=== PATIENT | female | born 1995 | race Caucasian/White ===

== ENCOUNTER 2023-10-15 07:41 | Inpatient (IN) ==
[2023-10-15] MEDS ORDERED: CALCIUM CARBONATE 500 MG CHEWABLE TAB PO PRN (08:44)
--- NOTE | 2023-10-15 09:03 | History & Physical Report ---
Date of Service October 15, 2023 Assessment & Plan (1) Post-term , 40-42 weeks of gestation: Plan: 37-year-old -0-0-1 at 40 weeks and 3 days of gestation presenting today for scheduled induction of labor for postdates, Vital signs stable afebrile, heart rate reassuring, GBS negative, Cervix unfavorable, Plan to admit, monitor, labs, breakfast before we start cervical ripening with Cervidil, discussed what to expect during induction of labor and understands all, All questions were answered. (2) Obesity affecting in third trimester, antepartum: Admission and Anticipated Discharge Date Admission Date: October 15, 2023 History of Present Illness Primary Care Provider: Alyssa Soares Patient is a 27-year-old -0-0-1 at 40 weeks and 3 days of gestation who was scheduled for induction of labor for postdates. Patient has no complaints. She denies contractions, leakage of fluid, vaginal bleeding. She reports good movements. Her has been uncomplicated except obesity. She denies medical problems. GBS negative. she had ultrasound in the office yesterday for EFW and it was 8 pounds 6 ounces. Her first baby was 8 years ago and she weighed 7 pounds. Allergies Allergy/AdvReac Type Severity Reaction Status Date / Time amoxicillin Allergy HIVES Unverified 11/18/19 22:02 clavulanic acid Allergy HIVES Unverified 11/18/19 22:02 Home Medications Medication Instructions Recorded Confirmed Type acetaminophen 500 mg tablet 1,000 mg PO Q6H PRN Pain 11/18/19 11/18/19 History (Tylenol Extra Strength) oxycodone 5 mg tablet (Roxicodone) 5 mg PO Q6H PRN pain #12 tabs 04/09/20 Rx Patient History Medical History No pertinent past medical history Surgical History No pertinent past surgical history Social History Smoking Status: Former smoker Tobacco Type: E-cigarettes / Vaping Second Hand Exposure: No; Do You Dip or Chew Tobacco: No; Hx Alcohol Use: No Hx Substance Use: No Preferred Language: Uzbek Communication Ability: Effective Marking Room Supervisor Required: No Beliefs That Will Affect Care: None marital status: Current Living Situation: Family Current Living Situation Comment: Pt lives with FOB, his grandparents, her 8 yo daughter, and 2 dogs. Other Information That Helps Us Care for You: No Feels Safe at Home: Yes Safety Concerns: Feels Safe At This Time Assistive Devices: None OB History full-term 8 years ago, viable female infant, 7 pounds WEBSITE DESIGNER History patient denies any history of STDs, no history of genital herpes, chlamydia, gonorrhea. Review of Systems as per Subjective / HPI Physical Exam Constitutional: WD/WN, vitals as above Genitourinary: normal external appearance OB Exam Abdomen: + vertex Manual OB Exam: + cervical dilation 1 cm, + cervical effacement 20% and + station high OB Exam Monitor Tracing: + external uterine monitor used and + category I Results & Data Vital Signs (Past 12 Hours) Vital Signs Temp Pulse Resp BP 10/15/23 08:20 36.8 C 110 H 16 140/75 10/15/23 07:51 110 H 140/75 (2) Obesity affecting in third trimester, antepartum Obesity type affecting : unspecified obesity Qualified Code(s): O99.213 - Obesity complicating , third trimester
[2023-10-15 09:33] LABS: Hemoglobin 12.3 g/dl (12.0-16.0); Mean Corpuscular Hemoglobin 29.6 pg (25.0-34.0); Mean Corpuscular Hgb Conc 33.2 g/dL (32.0-36.0); Mean Corpuscular Volume 88.9 fL (80.0-100.0); Platelet Count 174 K/uL (130-400); RDW Coefficient of Variation 13.7 % (11.5-14.5); RDW Standard Deviation 44.1 fL (36.4-46.3); Red Blood Count 4.16 M/uL (4.20-5.40); White Blood Count 11.88 K/ul (4.8-10.8)
[2023-10-15 09:43] LABS: Albumin Globulin Ratio 1.1 (0.9-2); Albumin Level 3.4 gm/dl (3.4-5.0); Bilirubin,Total 0.4 mg/dl (0.2-1.0); Calcium 8.9 mg/dl (8.6-10.3); Creatinine Clr Calc Pharmacy 176.7 ml/min; Est GFR (African American) 144.4 ml/min; Est GFR (Non-African American) 124.6 ml/min; Potassium 3.8 mmol/L (3.5-5.1); Total Protein 6.4 gm/dl (6.0-8.3)
[2023-10-15] MEDS: DINOPROSTONE 10 MG INSERT PV ONE (10:11)
[2023-10-15 10:22] LABS: HepB Surface Ag with confirm Negative (Negative)
[2023-10-15 10:28] LABS: HepC Ab Rflx HepCQuant RNA Negative (Negative)
[2023-10-15] MEDS: BUTORPHANOL TARTRATE 2 MG/ML VIAL IV ONE (14:53)
--- NOTE | 2023-10-15 14:58 | Obstetrical Progress Note ---
Date of Service October 15, 2023 Assessment & Plan Admission and Anticipated Discharge Date Admission Date: October 15, 2023 Subjective Patent c/o pain VE; 2/ 30%/-2 FHR categ I CTXS Q 2-4 min Continue to monitor Stadol for pain Results & Data Vital Signs (Past 12 Hours) Vital Signs Temp Pulse Resp BP 10/15/23 14:41 94 H 137/81 10/15/23 13:40 97 H 138/81 10/15/23 10:12 100 H 121/75 10/15/23 08:20 36.8 C 110 H 16 140/75 10/15/23 07:51 110 H 140/75
[2023-10-15] MEDS: LACTATED RINGER'S 1,000 ML IV PRN (15:00)
--- NOTE | 2023-10-15 16:42 | Obstetrical Progress Note ---
Date of Service October 15, 2023 Assessment & Plan Admission and Anticipated Discharge Date Admission Date: October 15, 2023 Subjective Patient is reevaluated She slept for a while and woke up, contractions are coming back Pain is less, 5/ 10 ( was 8-9), every 1-2 min FHR had been categ I Frannie: contractions q 1-2 min VE; 2/ 30%/-3, posterior, cervidil is removed Patient desires to walk and eat dinner Continue to monitor Will restart cervical ripening when contractions will space out Results & Data Vital Signs (Past 12 Hours) Vital Signs Temp Pulse Resp BP 10/15/23 15:55 96 H 128/80 10/15/23 15:05 16 10/15/23 15:05 36.8 C 16 10/15/23 15:01 93 H 126/78 10/15/23 14:56 88 136/82 10/15/23 14:41 94 H 137/81 10/15/23 13:40 97 H 138/81 10/15/23 12:05 18 10/15/23 12:05 36.8 C 18 10/15/23 10:12 100 H 121/75 10/15/23 08:20 36.8 C 110 H 16 140/75 10/15/23 07:51 110 H 140/75
[2023-10-15] MEDS ORDERED: miSOPROStoL 50 MCG TAB PO SCH (20:00)
[2023-10-15] MEDS: ACETAMINOPHEN 500 MG TAB PO PRN (20:00)
[2023-10-15] MEDS: BUTORPHANOL TARTRATE 2 MG/ML VIAL IV PRN (20:22)
--- NOTE | 2023-10-15 22:24 | Obstetrical Progress Note ---
Date of Service October 15, 2023 Assessment & Plan Admission and Anticipated Discharge Date Admission Date: October 15, 2023 Subjective Patient is getting more painful again and desires epidural for pain Since cervidil has been removed she has has been having regular contractions, was unable to get PO Cytotec VSS Afebrile FHR categ I [place] ctxs q 2-5 min VE; 2-3cm/ 70%/ -3, tight bulging bag Plan to call anesthesia for epidural Then augment with Oxytocin of needed Continue to monitor closely Results & Data Vital Signs (Past 12 Hours) Vital Signs Temp Pulse Resp BP 10/15/23 19:15 36.5 C 10/15/23 19:13 98 H 123/77 10/15/23 17:41 96 H 134/64 10/15/23 17:37 16 10/15/23 17:37 36.7 C 16 10/15/23 15:55 96 H 128/80 10/15/23 15:05 16 10/15/23 15:05 36.8 C 16 10/15/23 15:01 93 H 126/78 10/15/23 14:56 88 136/82 10/15/23 14:41 94 H 137/81 10/15/23 13:40 97 H 138/81 10/15/23 12:05 18 10/15/23 12:05 36.8 C 18
[2023-10-15] MEDS ORDERED: NALOXONE HCL 0.4 MG/1 ML VIAL/CARP IV PRN (22:50)
[2023-10-15] MEDS ORDERED: LIDOCAINE 2% MPF LOCAL 5 ML VIAL EPI PRN (22:50)
[2023-10-15] MEDS ORDERED: diphenhydrAMINE 50 MG/ML VIAL IV PRN (22:50)
[2023-10-15] MEDS ORDERED: ePHEDrine sulfate 50 MG/ML AMP IV PRN (22:50)
[2023-10-15] MEDS ORDERED: NALOXONE HCL 1 MG in SODIUM CHLORIDE 0.9% 1,000 ML IV PRN (22:50)
[2023-10-15] MEDS ORDERED: ROPIVACAINE 0.5% PF 5 MG/ML 20 ML VIAL EPI PRN (22:50)
[2023-10-15] MEDS ORDERED: NALBUPHINE HCL 5 MG in SYRINGE 0 ML IV PRN (22:50)
--- NOTE | 2023-10-15 22:50 | Anesthesiology Consultation ---
Date of Service October 15, 2023 Assessment & Plan (1) Encounter for pre-operative examination: Chart Review Chart Review: Patient NOT seen in Pre Admission Testing and Acceptable Risk for Labor Epidural Consults Requested none History Height/Weight Height: 5 ft 6 in Weight: 106.594 kg Allergies Allergy/AdvReac Type Severity Reaction Status Date / Time latex Allergy Mild Redness of Unverified 10/15/23 10:22 Skin amoxicillin Allergy HIVES Unverified 11/18/19 22:02 clavulanic acid Allergy HIVES Unverified 11/18/19 22:02 Medications Home Medications Medication Instructions Recorded Confirmed Last Taken vitamin no.45-iron-FA 28 tab PO 10/15/23 10/14/23 08:00 mg iron-1 mg chewable tablet Active Medications Generic Name Dose Route Start Last Admin Trade Name Freq PRN Reason Stop Dose Admin Acetaminophen 1,000 mg 10/15/23 08:44 10/15/23 20:00 Acetaminophen 500 Mg Tab PO 11/14/23 08:43 1,000 mg Q8H PRN Administration Pain Butorphanol Tartrate 1 mg 10/15/23 16:42 10/15/23 20:22 Butorphanol Tartrate 2 Mg/Ml Vial IV 11/14/23 16:44 1 mg Q3H PRN Administration pain Protocol Lactated Ringer's 1,000 mls @ 150 mls/hr 10/15/23 08:44 10/15/23 22:17 Lr IV 10/17/23 08:43 999 mls/hr .[id number] PRN Administration L&D Protocol Protocol Past Medical History Medical History No pertinent past medical history Past Surgical History Surgical History No pertinent past surgical history Social History Smoking Status: Former smoker Do You Dip or Chew Tobacco: No Hx Alcohol Use: No Hx Substance Use: No substance use type: does not use Physical Exam Vital Signs Last Vital Signs Temp 97.7 F 10/15/23 19:15 Pulse 95 H 10/15/23 22:47 Resp 16 10/15/23 17:37 BP 123/73 10/15/23 22:43 Pulse Ox 99 10/15/23 22:47 Testing Laboratory Results 10/15/23 09:08 06/13/24 09:08 Blood Type A Positive 10/15/23 09:08 Antibody Screen NEGATIVE 10/15/23 09:08
[2023-10-15] MEDS: fentaNYL citrate PF 100 MCG/2 ML VIAL ONE (23:14)
[2023-10-15] MEDS: LIDOCAINE 2%/EPINEPHRINE 1:200,000 20 ML PF EPI STA (23:14)
[2023-10-15] MEDS: fentANYL 2 MCG/ML BUPIVacaine 0.125%-NSS 100ML BAG ONE (23:14)
[2023-10-15] MEDS: BUPIVACAINE 0.25% PF 30 ML VIAL EPI STA (23:14)
[2023-10-15] MEDS: ePHEDrine sulfate 50 MG/ML AMP ONE (23:14)
[2023-10-15] MEDS: BUPIVACAINE 0.25% PF 30 ML VIAL ONE (23:15)
[2023-10-15] MEDS: LIDOCAINE 2%/EPINEPHRINE 1:200,000 20 ML PF ONE (23:15)
[2023-10-15] MEDS: SODIUM CHLORIDE 0.9% PF INJ 10 ML VIAL EPI STA (23:15)
[2023-10-15] MEDS: fentaNYL citrate PF 100 MCG/2 ML VIAL EPI STA (23:17)
[2023-10-15] MEDS: fentANYL 2 MCG/ML BUPIVacaine 0.125%-NSS 100ML BAG EPI PRN (23:17)
[2023-10-16] MEDS: OXYTOCIN 30 UNITS/NSS 30 UNITS/500 ML BAG IV PRN ×2 (00:48→06:27)
[2023-10-16] MEDS: fentaNYL citrate PF 100 MCG/2 ML VIAL EPI PRN (02:06)
[2023-10-16] MEDS: SODIUM CHLORIDE 0.9% PF INJ 10 ML VIAL EPI PRN (02:07)
[2023-10-16] MEDS: BUPIVACAINE 0.25% PF 30 ML VIAL EPI PRN (02:07)
--- OUTSIDE RECORDS SUMMARY | 2023-10-16 02:07 | External Medical Summary | Summary of Care ---
Author Name Unknown Organization [facility] [address] [address] Phone [phone] Care Team Providers Care Human Service Specialist Name Role Phone Wanda Rodriguez MD Primary Care Provide r Reason for Visit * Reason Comments Return Visit Encounter Details Date Type Department Care Team (Late st Contact Info) Description 09/29/2023 11:30 AM EDT Office Visit Gynecology/Obstetric s Wendy Jones [address] [place] [address] Mandie Barahona CRNP [address] [place] [phone] Normal in third trimester*; Obesity in , antepartum; Tobacco smoking affecting in third trimester Allergies Active Allergy Reactions Criticality Noted Date Comments Amoxicillin-Pot Clavulanate 07/14/19 08 hives documented as of this encounter (statuses as of 09/29/2023) Medications Medication Sig Dispensed Refills Start Date End Date Status 28-0.8 MG Oral Tablet Take by mouth. Active documented as of this encounter (statuses as of 09/29/2023) Active Problems Problem Noted Date Diagnosed Date Normal 03/10/2023 Obesity in , antepartum 03/10/2023 Overview: Class 1 The patient's pre-gravid BMI is 30.54. Elevated early 1 hr GTT; 3 hr testing normal. Will need 3 hr at 26-28 weeks. 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 10/01/2022 VACCIN FOR DISEASE NEC 01/30/2005 Estimated Date of Delivery Comme nts Yes 10/12/2023 Based on last me nstrual period of 01/05/2023, irregular periods documented as of this encounter (statuses as of 09/29/2023) Resolved Problems Problem Noted Date Diagnosed Date Resolved Date Glucose intolerance of 04/07/2023 04/17/2023 Overview: Elevated 1 hr GTT at 13 wks Food insecurity 10/13/2022 08/13/2023 Overview: Per [facility] Protocol documented as of this encounter (statuses as of 09/29/2023) Immunizations Name Administration Dates Next Due DTP Vaccine 10/09/1994,08/06/1994,03/25/1994 DTaP Dipth/Tet/Acell Pertussis (Infanrix), Peds 12/13/1998,08/18/1995 HIB PRP-T, 4 dose (ActHib) 05/08/1995,,08/06/1994, 994 HPV Vaccine, 4-Valent 06/20/2009,02/14/2009,06/2007 Hepatitis B, 0-19 yrs 08/06/1994,03/25/1994,12/03 IPV - Polio Virus Vaccine (Inact) 01/29/2000 MMR - Measles/Mumps/Rubella Vaccine 12/13/1998,0 05/08/1995 OPV - Polio Virus Vaccine (Oral) 05/08/1995,040 09/1994,03/25/1994 TB Dennise Test 12/22/1994 TDAP (age 10 and older)(Boostrix) 07/20/2023 Varicella Vaccine (Chicken Pox) 05/08/1995 documented as of this encounter Social History Tobacco Use Types Packs/Day Years Used Date Smoking Tobacco: Every Day Vaporizer Smokeless Tobacco: Never Alcohol Use Standard Drinks/Week Comments Not Currently 0 (1 standard drink = 0.6 oz pur e alcohol) occ PHQ-2 Answer Date Recorded PHQ Adult Total Score 0 07/20/2023 Hunger Vital Sign Answer Date Recorded Within the past 12 months, y ou worried that your food would run out before you got the money to buy more. Never true 07/17/19 24 Within the past 12 months, t he food you bought just didn't last and you didn't have money to get more. Never true 07/17/2023 [place] Depression Scale Answer Date Recorded [place] Depression Scale Total 0 08/31/2023 The thought of harming myself has occurred to me . Never 08/31/2023 Estimated Date of Delivery Comme nts Yes 10/12/2023 Based on last me nstrual period of 01/05/2023, irregular periods Sex and Gender Information Value Date Recorded Sex Assigned at Female 10/01/2022 10:43 AM EDT Gender Identity Female 10/01/2022 10:43 AM EDT Sexual Orientation Straight 10/01/2022 10 :43 AM EDT Job Start Date Occupation Industry Not on file Not on file Not on file documented as of this encounter Last Filed Vital Signs Vital Sign Reading Time Taken Comments Blood Pressure 116/70 09/29/2023 11:22 AM EDT Pulse - - Temperature - - Respiratory Rate - - Oxygen Saturation - - Inhaled Oxygen Concentration - - Weight 107.5 kg (237 lb) 09/29/2023 11:22 AM EDT Height - - Body Mass Index 38.25 09/21/2023 11:19 AM EDT documented in this encounter Progress Notes * Mandie Barahona CRNP - 09/29/2023 11:28 AM EDT 38w1d More consistent cramping today, desires cervical exam. Feels she is well hydrated. Cramping is worse when she is sitting down. Baby is moving well. No leaking/bleeding. Cervix 1 cm, thick/high. Reviewed labor precautions and when to call. Can try Tylenol, warm bath, push fluids, walk. 1 week return. Foreclosure Paralegal Documentation Provider requested insurance claim auditor. Name of insurance claim auditor: MICHAEL Wilson * Arely Jose LPN - 09/29/2023 11:23 AM EDT 38w1d Denies vaginal bleeding/rom + movement Has been having a lot of cramping- has been on and off but more consistent today Drinking lots of water Feels cramping is worse after sitting for long periods of time. Cervical check today documented in this encounter Plan of Treatment Health Maintenance Due Date Last Done Comments Pneumococcal Vaccine: Pediatrics (0 to 5 Years) and At-Risk Patients (6 to 64 Years) (1 of 2 - PCV) 12/27/1999 COVID-19 Vaccine (1 - 2022-24 season) 2023 Influenza Vaccine (FLU shot) (Season Ended) 2024 Pap Smear 10/08/2025 10/08/2022 DTaP,Tdap,and Td Vaccines (8 - Td or Tdap) 07/19/2033 07/20/2023, 01/30/2005, 12/13/1998, Additional history exists Hepatitis B Completed 08/06/1994, 03/05, 1993 MENINGOCOCCAL (MENACTRA/MENVEO) Aged Out 01/30/2005 No longer eligible based on patient's age to complete this topic GARDASIL-HPV IMMUNIZATION SERIES Completed 06/20/2009, 02/14/2009, 09/03/2007 documented as of this encounter Medical Devices Not on filedocumented as of this encounter Visit Diagnoses Diagnosis Normal in third trimester- Primary Obesity in , antepartum Obesity complicating , childbirth, or the puerperium, antepartum condition or complication Tobacco smoking affecting in third trimester documented in this encounter Care Teams Human Service Specialist Relationship Specialty Start Date End Date Wanda Rodriguez MD [address] [place] [address] [place] [phone] PCP - General Family Medicine 10/21/22 documented as of this encounter
--- OUTSIDE RECORDS SUMMARY | 2023-10-16 02:07 | External Medical Summary | Summary of Care ---
Author Name Unknown Organization [facility] Address [address] [facility] [place] [address] Phone [phone] Care Team Providers Care Human Performance Consultant Name Role Phone Wanda Rodriguez MD Primary Care Provide r Encounter Details Date Type Department Care Team (Late st Contact Info) Description 10/08/2023 Tele[facility] [address] [place] [address] Robert Bryan MD [address] [place] [phone] Allergies Active Allergy Reactions Criticality Noted Date Comments Amoxicillin-Pot Clavulanate 07/14/19 08 hives documented as of this encounter (statuses as of 10/12/2023) Medications Medication Sig Dispensed Refills Start Date End Date Status 28-0.8 MG Oral Tablet Take by mouth. Active documented as of this encounter (statuses as of 10/12/2023) Active Problems Problem Noted Date Diagnosed Date Normal 03/10/2023 Obesity in , antepartum 03/10/2023 Overview: Class 1 The patient's pre-gravid BMI is 30.54. Elevated early 1 hr GTT; 3 hr testing normal. Will need 3 hr at 26-28 weeks. 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 10/01/2022 VACCIN FOR DISEASE NEC 01/30/2005 Estimated Date of Delivery Comme nts Yes 10/12/2023 Based on last me nstrual period of 01/05/2023, irregular periods documented as of this encounter (statuses as of 10/12/2023) Resolved Problems Problem Noted Date Diagnosed Date Resolved Date Glucose intolerance of 04/07/2023 04/17/2023 Overview: Elevated 1 hr GTT at 13 wks Food insecurity 10/13/2022 08/13/2023 Overview: Per [facility] Protocol documented as of this encounter (statuses as of 10/12/2023) Immunizations Name Administration Dates Next Due DTP Vaccine 10/09/1994,08/06/1994,03/25/1994 DTaP Dipth/Tet/Acell Pertussis (Infanrix), Peds 12/13/1998,08/18/1995 HIB PRP-T, 4 dose (ActHib) 05/08/1995,,08/06/1994, 994 HPV Vaccine, 4-Valent 06/20/2009,02/14/2009,050 06/2007 Hepatitis B, 0-19 yrs 08/06/1994,03/25/1994,12/03 IPV - Polio Virus Vaccine (Inact) 01/29/2000 MMR - Measles/Mumps/Rubella Vaccine 12/13/1998,0 05/08/1995 OPV - Polio Virus Vaccine (Oral) 05/08/1995,0 09/1994,03/25/1994 TB Dennise Test 12/22/1994 TDAP (age [...] money to get more. Never true 07/17/2023 [place] Depression Scale Answer Date Recorded [place] Depression Scale Total 0 08/31/2023 The thought [...] on file documented as of this encounter Miscellaneous Notes * Telephone Encounter - Ashleigh Garcia LPN - 10/08/2023 11:45 AM EDT Patient called asking for work note for missed work due to discomfort. Reviewed with Dr. Bryan car conditioner, ok to provide note. documented in this encounter Plan of Treatment Upcoming Encounters Date Type Department Care Team (Late st Contact Info) Description 10/13/2023 11:15 AM EDT Office Visit Gynecology/Obstetrics [facility] [address] [place] [address] Norma Osei CRNP [address] [place] [phone] 10/19/2023 11:30 AM EDT Office Visit Gynecology/Obstetrics [address] [place] [address] Norma Osei CRNP [address] [place] [phone] Health Maintenance Due Date Last Done Comments Pneumococcal Vaccine: Pediatrics (0 to 5 Years) and At-Risk Patients (6 to 64 Years) (1 of 2 - PCV) 12/27/1999 COVID-19 Vaccine (1 - 2022- season) 2023 Influenza Vaccine (FLU shot) (Season Ended) 2024 Depression Monitoring 07/19/2024 07/20/2023 Pap Smear 10/08/2025 10/08/2022 DTaP,Tdap,and Td Vaccines [...] Diagnoses Diagnosis Normal in third trimester- Primary documented in this encounter Care Teams Human Performance Consultant Relationship Specialty Start Date End Date Wanda Rodriguez MD [address] [place] [address] [place] [phone] PCP - General Family Medicine 10/21/22 documented as of this encounter
--- OUTSIDE RECORDS SUMMARY | 2023-10-16 02:07 | External Medical Summary | Summary of Care ---
Author Name Unknown Organization [facility] Address [address] [facility] [place] [address] Phone [phone] Care Team Providers Care Body And Fender Mechanic Apprentice Name Role Phone Wanda Rodriguez MD Primary Care Provide r Reason for Visit * Reason Comments Return Visit Encounter Details Date Type Department Care Team (Late st Contact Info) Description 09/21/2023 11:30 AM EDT Office Visit Gynecology/Obstetric s Wendy Jones [address] [place] [address] Gisel Willett PA-C [address] [place] [address] Normal in third trimester*; Obesity in , antepartum; Tobacco smoking affecting in third trimester Allergies Active Allergy Reactions Criticality Noted Date Comments Amoxicillin-Pot Clavulanate 07/14/19 08 hives documented as of this encounter (statuses as of 09/21/2023) Medications Medication Sig Dispensed Refills Start Date End Date Status 28-0.8 MG Oral Tablet Take by mouth. Active documented as of this encounter (statuses as of 09/21/2023) Active Problems Problem Noted Date Diagnosed Date Normal 03/10/2023 Obesity in , antepartum 03/10/2023 Overview: Class 1 The patient's pre-gravid BMI is 30.54. Elevated early 1 hr GTT; 3 hr testing normal. Will need 3 hr at 26-28 weeks. 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 Never true 07/17/2023 [place] Depression Scale Answer Date Recorded [place] Depression Scale Total 0 08/31/2023 The thought [...] Sign Reading Time Taken Comments Blood Pressure 108/74 09/21/2023 11:19 AM EDT Pulse - - Temperature - - Respiratory Rate - - Oxygen Saturation - - Inhaled Oxygen Concentration - - Weight 105.2 kg (232 lb) 09/21/2023 11:19 AM EDT Height 167.6 cm (5' 6") 09/21/2023 11:19 AM EDT Body Mass Index 37.45 09/21/2023 11:19 AM EDT documented in this encounter Progress Notes * Gisel Willett PA-C - 09/21/2023 11:49 AM EDT 37w0d Denies contractions, VB, LOF. Pos fm. Growth following last visit d/t S>D. Completed 09/18/2023. EFW: 3176 g +/- 464 g which is the 73rd percentile. Normal JAYE. Cephalic. Reviewed with her today. Reviewed delivery records. Records scanned to chart. No mention of stroke. Discussed with patient. Normal spontaneous delivery reported in summary. Not complicated by preeclampsia. She did have second degree perineal laceration, right vaginal wall laceration, right and left superficial labial laceration. EBL 250 ml. Patient states never had imaging of head or placed on blood thinners. Was discharged next day. Pt states that nurse had mentioned to her that she looked like she was going to have stroke when patientwas in pain related to epidural not working. Also reports delivery provider did have to open cervix manually. We discussed that this was also not mentioned in delivery reports. Rather patient fully dilated. We discussed making delivery team aware of last delivery. At this time, low suspicion for stroke with last delivery given the above. RTC in 1 week Gisel Willett PA-C documented in this encounter Plan of Treatment Upcoming Encounters Date Type Department Care Team (Late st Contact Info) Description 09/29/2023 11:30 AM EDT [facility] [address] [place] [phone] BackerMandie CRNP [address] [place] [address] Health Maintenance Due Date Last Done Comments [...] trimester documented in this encounter Care Teams Body And Fender Mechanic Apprentice Relationship Specialty Start Date End Date Wanda Rodriguez MD [address] [place] [address] [place] [phone] PCP - General Family Medicine 10/21/22 documented as of this encounter
--- OUTSIDE RECORDS SUMMARY | 2023-10-16 02:07 | External Medical Summary | Summary of Care ---
Author Name Unknown Organization [facility] Address [address] [facility] [place] [address] Phone [phone] Care Team Providers Care Histologist Name Role Phone Wanda Rodriguez MD Primary Care Provide r Reason for Visit * Reason Onset Date Comments Advice 10/07/2023 Pt calling back after an hour approx 1230pm Encounter Details Date Type Department Care Team (Late st Contact Info) Description 10/07/2023 Telephone Gynecology/Obstetrics [facility] [place] [address] [place] [address] Melita Morales MD [address] [place] [address] Advice (Pt calling back after an hour appr... Allergies Active Allergy Reactions Criticality Noted Date Comments Amoxicillin-Pot Clavulanate 07/14/19 08 hives documented as of this encounter (statuses as of 10/07/2023) Medications Medication Sig Dispensed Refills Start Date End Date Status 28-0.8 MG Oral Tablet Take by mouth. Active documented as of this encounter (statuses as of 10/07/2023) Active Problems Problem Noted Date Diagnosed Date [...] as of this encounter (statuses as of 10/07/2023) Resolved Problems Problem Noted Date Diagnosed Date Resolved Date Glucose intolerance of 04/07/2023 04/17/2023 Overview: Elevated 1 hr GTT at 13 wks Food insecurity 10/13/2022 08/13/2023 Overview: Per [facility] Protocol documented as of this encounter (statuses as of 10/07/2023) Immunizations Name Administration Dates Next Due DTP [...] money to get more. Never true 07/17/2023 [place] Depression Scale Answer Date Recorded [place] Depression Scale Total 0 08/31/2023 The thought [...] encounter Miscellaneous Notes * Telephone Encounter - Mariaa Sparrow LPN - 10/07/2023 1:41 PM EDT Pt returned call- pt reports that her contraction activity is not consistent. Pt reports that contractions were every 10-15 minutes and then had a smaller cramp at 3 minutes each time. Pt stated thatshe has been sleeping most of the day due to being up most of the night because of pain. Pt reportsnausea- stated that partner is also not feeling well. Pt stated that she has not really been drinkin g any fluids. Educated pt on importance of drinking fluids. Pt agreeable. Advised pt to continue tomonitor contraction activity and to monitor for loss of fluid, any vaginal bleeding and pelvic pressure. Pt agreeable. Mariaa Sparrow LPN 10/07/2023 1:46 PM * Telephone Encounter - Crystal Brewer RN - 10/07/2023 11:25 AM EDT Pt started last night with cramping. Getting more intense. She has not tried to time the ctx. + back pain. + nausea. + FM. Advised to time ctx and call back after an hour. Pt agreeable. documented in this encounter Plan of Treatment Upcoming Encounters Date Type Department Care Team (Late st Contact Info) Description 10/19/2023 11:30 AM EDT Office Visit Gynecology/Obstetrics [address] [place] [address] Norma Osei CRNP [address] [place] [address] Health Maintenance Due Date Last Done Comments [...] Not on filedocumented as of this encounter Care Teams Histologist Relationship Specialty Start Date End Date Wanda Rodriguez MD [address] [place] [address] [place] [phone] PCP - General Family Medicine 10/21/22 documented as of this encounter
--- OUTSIDE RECORDS SUMMARY | 2023-10-16 02:07 | External Medical Summary | Summary of Care ---
Author Name Unknown Organization [facility] Address [address] [facility] [place] [address] Phone [phone] Care Team Providers Care Picker Name Role Phone Wanda Rodriguez MD Primary Care Provide r Encounter Details Date Type Department Care Team (Late st Contact Info) Description 10/01/2023 Telephone [facility] [address] [place] [address] Mandie Barahona CRNP [address] [place] [address] Allergies Active Allergy Reactions Criticality Noted Date Comments Amoxicillin-Pot Clavulanate 07/14/19 08 hives documented as of this encounter (statuses as of 10/01/2023) Medications Medication Sig Dispensed Refills Start Date End Date Status 28-0.8 MG Oral Tablet Take by mouth. Active documented as of this encounter (statuses as of 10/01/2023) Active Problems Problem Noted Date Diagnosed Date [...] as of this encounter (statuses as of 10/01/2023) Resolved Problems Problem Noted Date Diagnosed Date Resolved Date Glucose intolerance of 04/07/2023 04/17/2023 Overview: Elevated 1 hr GTT at 13 wks Food insecurity 10/13/2022 08/13/2023 Overview: Per [facility] Protocol documented as of this encounter (statuses as of 10/01/2023) Immunizations Name Administration Dates Next Due DTP Vaccine 10/09/1994,08/06/1994,03/25/1994 DTaP Dipth/Tet/Acell Pertussis (Infanrix), Peds 12/13/1998,08/18/1995 HIB PRP-T, 4 dose (ActHib) 05/08/1995,,08/06/1994, 994 HPV Vaccine, 4-Valent 06/20/2009,02/14/2009,06/2007 Hepatitis B, 0-19 yrs 08/06/1994,03/25/1994,12/03 IPV - Polio Virus Vaccine (Inact) 01/29/2000 MMR - Measles/Mumps/Rubella Vaccine 12/13/1998,0 05/08/1995 OPV - Polio Virus Vaccine (Oral) 05/08/1995,09/1994,03/25/1994 TB Dennise Test 12/22/1994 TDAP (age 10 [...] money to get more. Never true 07/17/2023 [place] Depression Scale Answer Date Recorded [place] Depression Scale Total 0 08/31/2023 The thought [...] encounter Miscellaneous Notes * Telephone Encounter - Crystal Brewer RN - 10/01/2023 8:46 AM EDT Pt was in the other day. She has been having more cramping. When I asked her how often she was cramping and she said she has approx 2 episodes lasting 2-3 min each every hour. She has been feeling more nauseated and moving her bowels more often. Keeping well hydrated. + FM. Denies any vaginal bleeding. Advised to push fluids and call if having ctx every 5 min for an hour, vaginal bleeding or ROM. Pt aware and agreeable. documented in this encounter Plan of Treatment Upcoming Encounters Date Type Department Care Team (Late st Contact Info) Description 10/05/2023 3:15 PM EDT Office Visit Gynecology/Obstetrics [address] [place] [address] Norma Osei CRNP [address] [place] [address] Health Maintenance Due Date Last Done Comments Pneumococcal Vaccine: Pediatrics (0 to 5 Years) and At-Risk Patients (6 to 64 Years) (1 of 2 - PCV) 12/27/1999 COVID-19 Vaccine (1 - 2023-24 season) 2023 Influenza Vaccine (FLU shot) (Season [...] filedocumented as of this encounter Care Teams Picker Relationship Specialty Start Date End Date Wanda Rodriguez MD [address] [place] [address] [place] [phone] PCP - General Family Medicine 10/21/22 documented as of this encounter
--- OUTSIDE RECORDS SUMMARY | 2023-10-16 02:07 | External Medical Summary | Summary of Care ---
Author Name Unknown Organization [facility] Address [address] [facility] [place] [address] Phone [phone] Care Team Providers Care Redevelopment Specialist Name Role Phone Wanda Rodriguez MD Primary Care Provide r Reason for Visit * Reason Comments Return Visit Encounter Details Date Type Department Care Team (Late st Contact Info) Description 10/05/2023 3:15 PM EDT Office Visit Gynecology/Obstetric s [address] [place] [address] Norma Osei CRNP [address] [place] [address] Normal in third trimester*; Obesity in , antepartum; Tobacco smoking affecting in third trimester Allergies Active Allergy Reactions Criticality Noted Date Comments Amoxicillin-Pot Clavulanate 07/14/19 08 hives documented as of this encounter (statuses as of 10/05/2023) Medications Medication Sig Dispensed Refills Start Date End Date Status 28-0.8 MG Oral Tablet Take by mouth. Active documented as of this encounter (statuses as of 10/05/2023) Active Problems Problem Noted Date Diagnosed Date [...] as of this encounter (statuses as of 10/05/2023) Resolved Problems Problem Noted Date Diagnosed Date Resolved Date Glucose intolerance of 04/07/2023 04/17/2023 Overview: Elevated 1 hr GTT at 13 wks Food insecurity 10/13/2022 08/13/2023 Overview: Per [facility] Protocol documented as of this encounter (statuses as of 10/05/2023) Immunizations Name Administration Dates Next Due DTP [...] money to get more. Never true 07/17/2023 [place] Depression Scale Answer Date Recorded [place] Depression Scale Total 0 08/31/2023 The thought [...] Sign Reading Time Taken Comments Blood Pressure 124/70 10/05/2023 3:08 PM EDT Pulse - - Temperature - - Respiratory Rate - - Oxygen Saturation - - Inhaled Oxygen Concentration - - Weight 107.5 kg (237 lb) 10/05/2023 3:08 PM EDT Height 167.6 cm (5' 6") 10/05/2023 3:08 PM EDT Body Mass Index 38.25 10/05/2023 3:08 PM EDT documented in this encounter Progress Notes * Norma Osei CRNP - 10/05/2023 3:11 PM EDT 39w Some cramping, no contractions. Discussed kick counts, to call if less than 10 movements in 2 hours. No bleeding or LOF. IOL 10/15/23. MICHAEL Bland * Amalai Vivar LPN - 10/05/2023 3:08 PM EDT 39w0d documented in this encounter Plan of Treatment Upcoming Encounters Date Type Department Care Team (Late st Contact Info) Description 10/19/2023 11:30 AM EDT Office Visit Gynecology/Obstetrics [address] [place] [address] Norma Osei CRNP [address] [place] [address] Health Maintenance Due Date Last Done Comments Pneumococcal Vaccine: Pediatrics (0 to 5 Years) and At-Risk Patients (6 to 64 Years) (1 of 2 - PCV) 12/27/1999 COVID-19 Vaccine ( - 2022-24 season) 2023 Influenza Vaccine (FLU [...] trimester documented in this encounter Care Teams Redevelopment Specialist Relationship Specialty Start Date End Date Wanda Rodriguez MD [address] [place] [address] [place] [phone] PCP - General Family Medicine 10/21/22 documented as of this encounter
--- OUTSIDE RECORDS SUMMARY | 2023-10-16 02:07 | External Medical Summary | Summary of Care ---
Author Name Unknown Organization [facility] [address] [facility] [address] Phone [phone] Care Team Providers Care Roll On Man Name Role Phone Wanda Rodriguez MD Primary Care Provide r Reason for Visit * Reason Comments Return Visit Encounter Details Date Type Department Care Team (Late st Contact Info) Description 10/13/2023 1:45 PM EDT Office Visit Gynecology/Obstetric s [facility] [address] [place] [address] Mandie Barahona CRNP [address] [place] [address] Normal in third trimester*; Obesity in , antepartum; Tobacco smoking affecting in third trimester; Uterine size date discrepancy Allergies Active Allergy Reactions Criticality Noted Date Comments Amoxicillin-Pot Clavulanate 07/14/19 08 hives documented as of this encounter (statuses as of 10/13/2023) Medications Medication Sig Dispensed Refills Start Date End Date Status 28-0.8 MG Oral Tablet Take by mouth. Active documented as of this encounter (statuses as of 10/13/2023) Active Problems Problem Noted Date Diagnosed Date [...] as of this encounter (statuses as of 10/13/2023) Resolved Problems Problem Noted Date Diagnosed Date Resolved Date Glucose intolerance of 04/07/2023 04/17/2023 Overview: Elevated 1 hr GTT at 13 wks Food insecurity 10/13/2022 08/13/2023 Overview: Per [facility] Protocol documented as of this encounter (statuses as of 10/13/2023) Immunizations Name Administration Dates Next Due DTP [...] money to get more. Never true 07/17/2023 [place] Depression Scale Answer Date Recorded [place] Depression Scale Total 0 08/31/2023 The thought [...] Sign Reading Time Taken Comments Blood Pressure 128/78 10/13/2023 1:48 PM EDT Pulse - - Temperature - - Respiratory Rate - - Oxygen Saturation - - Inhaled Oxygen Concentration - - Weight 106.6 kg (235 lb) 10/13/2023 1:48 PM EDT Height - - Body Mass Index 37.93 10/05/2023 3:08 PM EDT documented in this encounter Progress Notes * Rebekah Villalta MED ALEXA - 10/13/2023 1:48 PM EDT 40w1d Denies vaginal bleeding/rom + movements * Mandie Barahona CRNP - 10/13/2023 1:46 PM EDT 40w1d Baby moving well. Denies regular ctx, leaking/bleeding. No thoughts on contraception, done with childbearing. Trying to talk partner into a vasectomy. S>D, will schedule growth u/s. Last completed 09/17, EFW at that time was 3,176 g. IOL later this week, return prn. MICHAEL Robert documented in this encounter Plan of Treatment Upcoming Encounters Date Type Department Care Team (Late st Contact Info) Description 10/14/2023 12:00 PM EDT Imaging Radiology [facility] [address] [place] [address] 10/19/2023 11:30 AM EDT Office Visit Gynecology/Obstetrics [address] [place] [address] Norma Osei CRNP [address] [place] [address] Scheduled Orders Name Type Priority Associated Diagnoses Orde r Schedule US PREG FOLLOW-UP EACH FETUS Medical Imaging Routine Normal in third trimester Uterine size date discrepancy Expected: 10/13/2023 (Approximate), Expires: 11/11/2024 Health Maintenance Due Date Last Done Comments [...] complication Tobacco smoking affecting in third trimester Uterine size date discrepancy Uterine size date discrepancy, antepartum condition or complication documented in this encounter Care Teams Roll On Man Relationship Specialty Start Date End Date Wanda Rodriguez MD [address] [place] [address] [place] [phone] PCP - General Family Medicine 10/21/22 documented as of this encounter
--- NOTE | 2023-10-16 02:08 | Anesthesia Procedure Note ---
Date of Service October 16, 2023 Anesthesia Epidural Re-Dose Vital Signs Temp Pulse Resp BP Pulse Ox 97.5 F L 92 H 18 115/60 98 10/16/23 01:00 10/16/23 02:02 10/16/23 01:00 10/16/23 01:54 10/16/23 02:02 Notes Pain Intensity: 8 Dilatation (cm): 2.5 Effacement (%): 70 Called by nursing to evaluate epidural as the patient is having increased pain. The epidural was re-dosed with the following medications (all medications via epidural route) after negative aspiration of the epidural catheter for CSF/HEME. 0.125 Bupivacaine (8ml) with 100 mcg Fentanyl After Epidural Re-Dose Mental Status: alert / awake / arousable Pain: improving with treatment Airway Patency, RR, SpO2: stable & adequate BP & HR: stable & adequate
--- OUTSIDE RECORDS SUMMARY | 2023-10-16 02:08 | External Medical Summary | Summary of Care ---
Author Name Unknown Organization [facility] Address [address] [facility] [place] [address] Phone [phone] Care Team Providers Care Batch Blender Name Role Phone Wanda Rodriguez MD Primary Care Provide r Encounter Details Date Type Department Care Team (Late st Contact Info) Description 09/16/2023 Orders Only Gynecology/Obstetrics [facility] [address] [place] [address] Mandie Barahona CRNP [address] [place] [address] Allergies Active Allergy Reactions Criticality Noted Date Comments Amoxicillin-Pot Clavulanate 07/14/19 08 hives documented as of this encounter (statuses as of 09/16/2023) Medications Medication Sig Dispensed Refills Start Date End Date Status 28-0.8 MG Oral Tablet Take by mouth. 0 Active documented as of this encounter (statuses as of 09/16/2023) Active Problems Problem Noted Date Diagnosed Date [...] as of this encounter (statuses as of 09/16/2023) Resolved Problems Problem Noted Date Diagnosed Date Resolved Date Glucose intolerance of 04/07/2023 04/17/2023 Overview: Elevated 1 hr GTT at 13 wks Food insecurity 10/13/2022 08/13/2023 Overview: Per [facility] Protocol documented as of this encounter (statuses as of 09/16/2023) Immunizations Name Administration Dates Next Due DTP [...] money to get more. Never true 07/17/2023 [place] Depression Scale Answer Date Recorded [place] Depression Scale Total 0 08/31/2023 The thought [...] on file documented as of this encounter Plan of Treatment Upcoming Encounters Date Type Department Care Team (Late st Contact Info) Description 09/18/2023 11:15 AM EDT Imaging Radiology [facility] 2[facility] [address] [place] [phone] 09/21/2023 11:30 AM EDT Office Visit Gynecology/Obstetrics [facility] [address] [place] [address] Gisel Willett PA-C [address] [place] [phone] 09/29/2023 11:30 AM EDT Office Visit Gynecology/Obstetrics [facility] [address] [place] [address] Mandie Barahona CRNP [address] [place] [address] Pending Results Name Type Priority Associated Diagnoses Date /Time CHEMISTRY-OUTSIDE Lab Routine 016 Health Maintenance Due Date Last Done Comments [...] filedocumented as of this encounter Care Teams Batch Blender Relationship Specialty Start Date End Date Wanda Rodriguez MD [address] [place] [address] [place] [phone] PCP - General Family Medicine 10/21/22 documented as of this encounter
--- OUTSIDE RECORDS SUMMARY | 2023-10-16 02:08 | External Medical Summary ---
Author Name Unknown Address Unknown Organization [id number]:[facility] – [place] - [address] [place], [place] [address] Laboratory Report Ordering Provider Test Date Status VALERIA JAY 09/15/2023 11:51:12 Final Observation Date Value Abnormality Reference (Units ) Status Streptococcus agalactiae DNA [Presence] in Specimen by BRANDT with probe detection 09/15/2023 11:51:12 Negative Negative Final No Group B Streptococcus det ected by culture-enhanced PCR (amplified probe).
The collection of vaginal/rectal swab specimen combinations (FDA approved specimen type) is optimal for the detection of Group B Streptococcus. Single source collection (vaginal only or rectal only) or alternate specimen sources may lead to false negative results. Performing Location [facility] – [place] - [address] [place], [place] [address]
--- OUTSIDE RECORDS SUMMARY | 2023-10-16 02:08 | External Medical Summary | Summary of Care ---
Author Name Unknown Organization [facility] Address [address] [place] [address] Phone [phone] Care Team Providers Care Engine Boss Name Role Phone Wanda Rodriguez MD Primary Care Provide r Reason for Visit * Reason Comments Return Visit Encounter Details Date Type Department Care Team (Late st Contact Info) Description 08/03/2023 1:30 PM EDT Office Visit Gynecology/Obstetric s [facility] [address] [facility] [place] [address] Timothy Ward CNM [address] [place] [address] Normal in third trimester*; Obesity in , antepartum; Tobacco smoking affecting in third trimester; Vaginal discharge Allergies Active Allergy Reactions Criticality Noted Date Comments Amoxicillin-Pot Clavulanate 07/14/19 08 hives documented as of this encounter (statuses as of 08/05/2023) Medications Medication Sig Dispensed Refills Start Date End Date Status 28-0.8 MG Oral Tablet Take by mouth. 0 Active Ondansetron HCl 4 MG Oral TabletIndications: Nausea and vomiting in Take 1 Tablet by mouth every 8 hours as needed for Nausea. 20 Tablet 2 06/09/2023 Active Miconazole Nitrate 2 % Vaginal Cream (Monistat 7) Administer into the vagina at bedtime for 7 days. 45 g 0 08/05/2023 08/12/2023 Active documented as of this encounter (statuses as of 08/05/2023) Active Problems Problem Noted Date Diagnosed Date Normal 03/10/2023 Obesity in , antepartum 03/10/2023 Overview: Class 1 The patient's pre-gravid BMI is 30.54. Elevated early 1 hr GTT; 3 hr testing normal. Will need 3 hr at 26-28 weeks. 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 10/01/2022 VACCIN FOR DISEASE NEC 01/30/2005 Estimated Date of Delivery Comme nts Yes 10/12/2023 Based on last me nstrual period of 01/05/2023, irregular periods documented as of this encounter (statuses as of 08/05/2023) Resolved Problems Problem Noted Date Diagnosed Date Resolved Date Glucose intolerance of 04/07/2023 04/17/2023 Overview: Elevated 1 hr GTT at 13 wks documented as of this encounter (statuses as of 08/05/2023) Immunizations Name Administration Dates Next Due DTP Vaccine 10/09/1994,08/06/1994,03/25/1994 DTaP Dipth/Tet/Acell Pertussis (Infanrix), Peds 01/30/2005,12/13/1998,08/18/1995 HIB PRP-T, 4 dose (ActHib) 05/08/1995,,08/06/1994,03/25 HPV Vaccine, 4-Valent 06/20/2009,02/14/2009,06/2007 Hepatitis B, 0-19 yrs 08/06/1994,03/25/1994,12/03 IPV - Polio Virus Vaccine (Inact) 01/29/2000 MMR - Measles/Mumps/Rubella Vaccine 12/13/1998,0 05/08/1995 Meningococcal Conjugate Vacc ine (Menactra/Menveo) 01/30/2005 OPV - Polio Virus Vaccine (Oral) 05/08/1995,0 [...] money to get more. Never true 07/17/2023 [place] Depression Scale Answer Date Recorded [place] Depression Scale Total 1 07/20/2023 The thought of harming myself has occurred to me . Never 07/20/2023 Estimated Date of Delivery Comme nts Yes [...] Sign Reading Time Taken Comments Blood Pressure 110/68 08/03/2023 1:18 PM EDT Pulse - - Temperature - - Respiratory Rate - - Oxygen Saturation - - Inhaled Oxygen Concentration - - Weight 97.6 kg (215 lb 3.2 oz) 08/03/2023 1:18 P M EDT Height 167.6 cm (5' 6") 08/03/2023 1:18 PM EDT Body Mass Index 34.73 08/03/2023 1:18 PM EDT documented in this encounter Progress Notes * Timothy Ward CNM - 08/03/2023 1:30 PM EDT Amna Jorgito Braga is a 27 year old female here for her routine OB appointment at 30w0d Her Estimated Date of Delivery: 10/12/23 REVIEW OF SYSTEMS: She affirms movement. Denies vaginal bleeding, LOF, contractions, N/V, headaches Reports increased vaginal discharge with an odor. PHYSICAL EXAM: Filed Vitals: 08/03/23 1318 BP: 110/68 Weight: 97.6 kg (215 lb 3.2 oz) Height: 1.676 m (5' 6") +FHT 130s Fundal height 30 ASSESSMENT/PLAN: 1. Obesity in , antepartum 2. Tobacco smoking affecting in third trimester 3. Normal in third trimester 4. Vaginal discharge - VAGINOSIS PANEL, PCR; Future - labor precautions and kick counts reviewed - RTO in 2 weeks Timothy Ward CNM documented in this encounter Nursing Notes * Raven Sanderson RN - 08/03/2023 1:20 PM EDT Patient here for ALICIA 30w0d No concerns + FM Raven Sanderson RN documented in this encounter Miscellaneous Notes * Addendum Note - Timothy Ward CNM - 08/05/2023 9:40 AM EDTAddended by: TIMOTHY WARD on: 08/05/2023 09:40 AM Modules accepted: Orders * Result Encounter Note - Timothy Ward CNM - 08/05/2023 9:40 AM EDT Please let Amna know that her vaginosis panel is positive for yeast. I sent a rx to her pharmacy. documented in this encounter Plan of Treatment Upcoming Encounters Date Type Department Care Team (Late st Contact Info) Description 08/18/2023 10:00 AM EDT Office Visit Gynecology/Obstetrics [facility] [address] [place] [address] Norma Osei CRNP [address] [place] [address] 08/31/2023 11:45 AM EDT Office Visit Gynecology/Obstetrics [facility] [address] [place] [address] Gisel Willett PA-C [address] [place] [address] 09/14/2023 11:30 AM EDT Office Visit Gynecology/Obstetrics [facility] [address] [place] [address] Gisel Willett PA-C [address] [place] [address] 09/21/2023 11:30 AM EDT Office Visit Gynecology/Obstetrics [facility] [address] [place] [address] Gisel Willett PA-C [address] [place] [address] 09/29/2023 11:30 AM EDT Office Visit Gynecology/Obstetrics [facility] [address] [place] [address] Mandie Barahona CRNP [address] [place] [address] 10/05/2023 11:30 AM EDT Office Visit Gynecology/Obstetrics [facility] [address] [place] [address] Farzana Donnelly, [address] [place] [address] Health Maintenance Due Date Last Done Comments Pneumococcal Vaccine: Pediatrics (0 to 5 Years) and At-Risk Patients (6 to 64 Years) (1 of 2 - PCV) 12/27/1999 COVID-19 Vaccine (1 - 2022-24 season) 2023 Influenza Vaccine (FLU shot) (Season Ended) 2024 Depression Screening 07/19/2024 07/20/2023 Pap Smear 10/08/2025 10/08/2022 DTaP,Tdap,and [...] Not on filedocumented as of this encounter Procedures Procedure Name Priority Date/Time Associated Diagnosis Comments VAGINOSIS PANEL, PCR Routine 08/03/2023 1:41 PM EDT Vaginal discharge documented in this encounter Results * (ABNORMAL) VAGINOSIS PANEL, PCR (08/03/2023 1:41 PM EDT) Bacterial Vaginosis Result Negative Negative 08/04/2023 11:41 AM EDT [facility] Comment:Negative for Bacteri al Vaginosis. Correlate results with other clinical findings. Mignon species Result Positive(A) Negative 08/04/2023 11:41 AM EDT [facility] Comment:Mignon species grou p RNA detected. Correlate results with other clinical findings. Mignon glabrata Result Negative Negative 08/04/2023 11:41 AM EDT [facility] Comment:No Mignon glabrata RNA detected. Correlate results with other clinical findings. Trichomonas Result Negative Negative 08/04/2023 11:41 AM EDT [facility] Comment:No Trichomonas vagin tawanna RNA detected. Swab Specimen from wound / Unknown 08/03/2023 1:41 PM EDT 08/03/2023 1:41 PM EDT Timothymami Ward [facility] MICRO - GENERAL ORDERABLES LABORATORY [facility] [address] [facility] [place] [address] documented in this encounter Visit Diagnoses Diagnosis Normal in third trimester- Primary Obesity in , antepartum Obesity complicating , childbirth, or the puerperium, antepartum condition or complication Tobacco smoking affecting in third trimester Vaginal discharge Leukorrhea, not specified as infective documented in this encounter Care Teams Engine Boss Relationship Specialty Start Date End Date Wanda Rodriguez MD [address] [place] [address] [place] [phone] PCP - General Family Medicine 10/21/22 documented as of this encounter
--- OUTSIDE RECORDS SUMMARY | 2023-10-16 02:08 | External Medical Summary | Summary of Care ---
Author Name Unknown Organization [facility] Address [address] [facility] [address] Phone [phone] Care Team Providers Care Front Office Supervisor Name Role Phone Wanda Rodriguez MD Primary Care Provide r Reason for Visit * Reason Comments Return Visit Encounter Details Date Type Department Care Team (Late st Contact Info) Description 08/18/2023 10:00 AM EDT Office Visit Gynecology/Obstetric s [facility] [address] [place] [address] Norma Osei CRNP [address] [place] [address] Normal in third trimester*; Obesity in , antepartum; Tobacco smoking affecting , antepartum Allergies Active Allergy Reactions Criticality Noted Date Comments Amoxicillin-Pot Clavulanate 07/14/19 08 hives documented as of this encounter (statuses as of 08/18/2023) Medications Medication Sig Dispensed Refills Start Date End Date Status 28-0.8 MG Oral Tablet Take by mouth. 0 Active Ondansetron HCl 4 MG Oral TabletIndications:Brian sea and vomiting in Take 1 Tablet by mouth every 8 hours as needed for Nausea. 20 Tablet 2 06/09/2023 Active documented as of this encounter (statuses as of 08/18/2023) Active Problems Problem Noted Date Diagnosed Date [...] as of this encounter (statuses as of 08/18/2023) Resolved Problems Problem Noted Date Diagnosed Date Resolved Date Glucose intolerance of 04/07/2023 04/17/2023 Overview: Elevated 1 hr GTT at 13 wks Food insecurity 10/13/2022 08/13/2023 Overview: Per [facility] Protocol documented as of this encounter (statuses as of 08/18/2023) Immunizations Name Administration Dates Next Due DTP [...] money to get more. Never true 07/17/2023 [place] Depression Scale Answer Date Recorded [place] Depression Scale Total 1 07/20/2023 The thought [...] Sign Reading Time Taken Comments Blood Pressure 116/68 08/18/2023 10:01 AM EDT Pulse - - Temperature - - Respiratory Rate - - Oxygen Saturation - - Inhaled Oxygen Concentration - - Weight 101.6 kg (224 lb) 08/18/2023 10:01 AM EDT Height 167.6 cm (5' 6") 08/18/2023 10:01 AM EDT Body Mass Index 36.15 08/18/2023 10:01 AM EDT documented in this encounter Progress Notes * Norma Osei CRNP - 08/18/2023 10:21 AM EDT 32w1d No complaints. Baby is active. Denies contractions, bleeding, LOF. Asking if this office received records from [facility] from last delivery. Delivery summary received,reports , no complications. Pt states she had a complicated delivery with many stitches, and was told by a nurse she "almost had a stroke". She states that her cervix was manually dilated and had a cervical laceration. Will request delivery summary and 6w PP notes. Will look for records again at next visit. MICHAEL Bland * Amalia Vivar LPN - 08/18/2023 10:01 AM EDT 32w1d Denies any concerns documented in this encounter Plan of Treatment Upcoming Encounters Date Type Department Care Team (Late st Contact Info) Description 08/31/2023 11:45 AM EDT Office Visit Gynecology/Obstetrics [facility] [address] [place] [address] Gisel Willett PA-C [address] [place] [address] 09/14/2023 11:30 AM EDT Office Visit Gynecology/Obstetrics [facility] [address] [place] [address] Gisel Willett PA-C [address] [place] [address] 09/21/2023 11:30 AM EDT Office Visit Gynecology/Obstetrics [facility] [address] [place] [address] Gisel Willett PA-C [address] [place] [address] 09/29/2023 11:30 AM EDT Office Visit Gynecology/Obstetrics [facility] [address] [place] [address] Mandie Barahona CRNP [address] [place] [address] Health Maintenance Due Date Last Done Comments [...] antepartum condition or complication Tobacco smoking affecting , antepartum documented in this encounter Care Teams Front Office Supervisor Relationship Specialty Start Date End Date Wanda Rodriguez MD [address] [place] [address] [place] [address] PCP - General Family Medicine 10/21/22 documented as of this encounter
--- OUTSIDE RECORDS SUMMARY | 2023-10-16 02:08 | External Medical Summary | Summary of Care ---
Author Name Unknown Organization [facility] Address [address] [place] [address] Phone [phone] Care Team Providers Care Business Solutions Architect Name Role Phone Wanda Rodriguez MD Primary Care Provide r Encounter Details Date Type Department Care Team (Late st Contact Info) Description 08/03/2023 Orders Only Gynecology/Obstetrics [facility] [address] [place] [address] Poly Grullon CNM [address] [place], [place] [id number] Allergies Active Allergy Reactions Criticality Noted Date Comments Amoxicillin-Pot Clavulanate 07/14/19 08 hives documented as of this encounter (statuses as of 08/03/2023) Medications Medication Sig Dispensed Refills Start Date End Date Status 28-0.8 MG Oral Tablet Take by mouth. 0 Active Ondansetron HCl 4 MG Oral TabletIndications:Brian sea and vomiting in Take 1 Tablet by mouth every 8 hours as needed for Nausea. 20 Tablet 2 06/09/2023 Active documented as of this encounter (statuses as of 08/03/2023) Active Problems Problem Noted Date Diagnosed Date Normal 03/10/2023 Obesity in , antepartum 03/10/2023 Overview: Class 1 The patient's pre-gravid BMI is 30.54. Elevated early 1 hr GTT; 3 hr testing normal. Will need 3 hr at 26-28 weeks. 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 10/01/2022 VACCIN FOR DISEASE NEC 01/30/2005 Estimated Date of Delivery Comme nts Yes 10/12/2023 Based on last me nstrual period of 01/05/2023, irregular periods documented as of this encounter (statuses as of 08/03/2023) Resolved Problems Problem Noted Date Diagnosed Date Resolved Date Glucose intolerance of 04/07/2023 04/17/2023 Overview: Elevated 1 hr GTT at 13 wks documented as of this encounter (statuses as of 08/03/2023) Immunizations Name Administration Dates Next Due DTP Vaccine 10/09/1994,08/06/1994,03/25/1994 DTaP Dipth/Tet/Acell Pertussis (Infanrix), Peds 12/13/1998,08/18/1995 HIB PRP-T, 4 dose (ActHib) 05/08/1995,,08/06/1994, 994 HPV Vaccine, 4-Valent 06/20/2009,02/14/2009,0506/2007 Hepatitis B, 0-19 yrs 08/06/1994,03/25/1994,12/03 IPV - [...] money to get more. Never true 07/17/2023 [place] Depression Scale Answer Date Recorded [place] Depression Scale Total 1 07/20/2023 The thought [...] 08/18/2023 10:00 AM EDT Office Visit Gynecology/Obstetrics [facility] [address] [place] [address] Norma Osei CRNP [address] [place] [address] 08/31/2023 11:45 AM EDT Office Visit Gynecology/Obstetrics [facility] [address] [place] [address] Gisel Willett PA-C [address] [place] [address] 09/14/2023 11:30 AM EDT Office Visit Gynecology/Obstetrics [facility] [address] [place] [address] Gisel Willett PA-C [address] [place] [address] 09/21/2023 11:30 AM EDT Office Visit Gynecology/Obstetrics [facility] [address] [place] [address] Gisel Willett PA-C [address] [place] [address] 09/29/2023 11:30 AM EDT Office Visit Gynecology/Obstetrics [facility] [address] [place], [place] [address] Mandie Barahona CRNP [address] [place] [address] 10/05/2023 11:30 AM EDT Office Visit Gynecology/Obstetrics [facility] [address] [place], [place] [address] Farzana Donnelly, [address] [place] [address] Health Maintenance Due Date Last Done Comments [...] Procedure Name Priority Date/Time Associated Diagnosis Comments CHEMISTRY-OUTSIDE Routine 06/19/2015 documented in this encounter Results * CHEMISTRY-OUTSIDE (06/19/2015) Not all results display below - see scan for full detail OUTSIDE LAB (SEE SCANNED REPORT) Comment:SEE SCAN; CBCD, UA CREATININE-OUTSID E LAB OUTSIDE LAB (SEE SCANNED REPORT) EGFR-OUTSIDE LAB OUT SIDE LAB (SEE SCANNED REPORT) POTASSIUM-OUTSIDE LAB OUTSIDE LAB (SEE SCANNED REPORT) GLUCOSE-OUTSIDE LAB OUTSIDE LAB (SEE SCANNED REPORT) HOURS FASTING OUTSID E LAB (SEE SCANNED REPORT) TRIGLYCERIDES-OUT SIDE LAB OUTSIDE LAB (SEE SCANNED REPORT) CHOLESTEROL-OUTSI DE LAB OUTSIDE LAB (SEE SCANNED REPORT) HDL-OUTSIDE LAB OUTS DARIO LAB (SEE SCANNED REPORT) CHOL/HDL RATIO-OUTSIDE LAB OUTSIDE LA B (SEE SCANNED REPORT) LDL (CALCULATED)-OUTS [facility]ARIO LAB OUTSIDE LAB (SEE SCANNED REPORT) LDL (DIRECT MEASURE)-OUTSIDE LAB OUTSIDE LAB (SEE SCANNED REPORT) HEMOGLOBIN, E2V-LSYZBRI LAB OUTSIDE LAB (SEE SCANNED REPORT) PHOSPHORUS-OUTSID E LAB OUTSIDE LAB (SEE SCANNED REPORT) PTH-OUTSIDE LAB OUTS DARIO LAB (SEE SCANNED REPORT) MICROALBUMIN RATIO-OUTSIDE LAB OUTSIDE LA B (SEE SCANNED REPORT) PROTEIN, UA-OUTSIDE LAB NEGATIVE OUTSIDE LAB (SEE SCANNED REPORT) HGB 13.6 G/DL OUTSIDE LA B (SEE SCANNED REPORT) 06/19/2015 History Per Patient LABORATORY OUTSIDE LAB (SEE SCANNED REPORT) documented in this encounter Care Teams Business Solutions Architect Relationship Specialty Start Date End Date aWnda Rodriguez MD [address] [place] [address] [place] [address] PCP - General Family Medicine 10/21/22 documented as of this encounter
--- OUTSIDE RECORDS SUMMARY | 2023-10-16 02:08 | External Medical Summary | Summary of Care ---
Author Name Unknown Organization [facility] Address [address] [facility] [place] [address] Phone [phone] Care Team Providers Care Online Advertising Manager Name Role Phone Wanda Rodriguez MD Primary Care Provide r Reason for Visit * Reason Comments Return Visit Encounter Details Date Type Department Care Team (Late st Contact Info) Description 08/31/2023 11:45 AM EDT Office Visit Gynecology/Obstetric s [facility] [address] [place] [address] Gisel Willett PA-C [address] [place] [address] Normal in third trimester*; Obesity in , antepartum; Tobacco smoking affecting in third trimester Allergies Active Allergy Reactions Criticality Noted Date Comments Amoxicillin-Pot Clavulanate 07/14/19 08 hives documented as of this encounter (statuses as of 08/31/2023) Medications Medication Sig Dispensed Refills Start Date End Date Status 28-0.8 MG Oral Tablet Take by mouth. 0 Active Ondansetron HCl 4 MG Oral TabletIndications:Brian sea and vomiting in Take 1 Tablet by mouth every 8 hours as needed for Nausea. 20 Tablet 2 06/09/2023 Active documented as of this encounter (statuses as of 08/31/2023) Active Problems Problem Noted Date Diagnosed Date [...] as of this encounter (statuses as of 08/31/2023) Resolved Problems Problem Noted Date Diagnosed Date Resolved Date Glucose intolerance of 04/07/2023 04/17/2023 Overview: Elevated 1 hr GTT at 13 wks Food insecurity 10/13/2022 08/13/2023 Overview: Per [facility] Protocol documented as of this encounter (statuses as of 08/31/2023) Immunizations Name Administration Dates Next Due DTP Vaccine 10/09/1994,08/06/1994,03/25/1994 DTaP Dipth/Tet/Acell Pertussis (Infanrix), Peds 01/30/2005,12/13/1998,08/18/1995 HIB PRP-T, 4 dose (ActHib) 05/08/1995,,08/06/1994,03/25 HPV Vaccine, 4-Valent 06/20/2009,02/14/2009,06/2007 Hepatitis B, 0-19 yrs 08/06/1994,03/25/1994,12/03 IPV - Polio Virus Vaccine (Inact) 01/29/2000 MMR - Measles/Mumps/Rubella Vaccine 12/13/1998,0 05/08/1995 Meningococcal Conjugate Vacc ine (Menactra/Menveo) 01/30/2005 OPV - Polio Virus Vaccine (Oral) 05/08/1995,09/1994,03/25/1994 [...] money to get more. Never true 07/17/2023 [place] Depression Scale Answer Date Recorded [place] Depression Scale Total 0 08/31/2023 The thought [...] Sign Reading Time Taken Comments Blood Pressure 114/62 08/31/2023 11:33 AM EDT Pulse - - Temperature - - Respiratory Rate - - Oxygen Saturation - - Inhaled Oxygen Concentration - - Weight 102.5 kg (226 lb) 08/31/2023 11:33 AM EDT Height - - Body Mass Index 36.48 08/18/2023 10:01 AM EDT documented in this encounter Progress Notes * Gisel Willett PA-C - 08/31/2023 11:46 AM EDT 34w0d She had tried to call for delivery records with [facility] following last visit. Pt states they were tosend. Discussed with her have not received. See prior OV for discussion. Advised for her to sign release of records when she goes to check out for all OB office records and hospital records. Pt will also try to call and see if she can get physical records from them in meantime. Reviewed GBS next visit. Denies LOF, VB, contractions. Pos fm. RTC in 2 weeks Gisel Willett PA-C * Arely Jose LPN - 08/31/2023 11:32 AM EDT 34w0d Denies vaginal bleeding/rom + movement No new concerns documented in this encounter Plan of Treatment Upcoming Encounters Date Type Department Care Team (Late st Contact Info) Description 09/14/2023 11:30 AM EDT [facility] [address] [place] [address] Gisel Willett PA-C [address] [place] [address] 09/21/2023 11:30 AM EDT [facility] [address] [place] [address] Gisel Willett PA-C [address] [place] [address] 09/29/2023 11:30 AM EDT [facility] [address] [place] [address] Mandie Barahona CRNP [address] [place] [address] Health Maintenance Due Date Last Done Comments [...] trimester documented in this encounter Care Teams Online Advertising Manager Relationship Specialty Start Date End Date Wanda Rodriguez MD [address] [place] [address] [place] [address] PCP - General Family Medicine 10/21/22 documented as of this encounter
--- OUTSIDE RECORDS SUMMARY | 2023-10-16 02:08 | External Medical Summary | Summary of Care ---
Author Name Unknown Organization [facility] Address [address] [facility] [address] Phone [phone] Care Team Providers Care Scrap Crusher Name Role Phone Wanda Rodriguez MD Primary Care Provide r Reason for Visit * Reason Comments Return Visit Encounter Details Date Type Department Care Team (Late st Contact Info) Description 09/15/2023 11:30 AM EDT Office Visit Gynecology/Obstetric s Wendy Jones [address] [place] [address] Mandie Barahona CRNP [address] [place] [address] Normal in third trimester*; Obesity in , antepartum; Tobacco smoking affecting in third trimester; Uterine size date discrepancy Allergies Active Allergy Reactions Criticality Noted Date Comments Amoxicillin-Pot Clavulanate 07/14/19 08 hives documented as of this encounter (statuses as of 09/15/2023) Medications Medication Sig Dispensed Refills Start Date End Date Status 28-0.8 MG Oral Tablet Take by mouth. 0 Active Ondansetron HCl 4 MG Oral TabletIndication s:Nausea and vomiting in Take 1 Tablet by mouth every 8 hours as needed for Nausea. 20 Tablet 2 06/09/2023 09/15/2023 Discontinued (Medication List Clean Up) Miconazole Nitrate 2 % Vaginal Cream (Monistat 7) Administer into the vagina at bedtime for 7 days. 45 g 0 08/05/2023 09/15/2023 Discontinued (Medication List Clean Up) documented as of this encounter (statuses as of 09/15/2023) Active Problems Problem Noted Date Diagnosed Date [...] as of this encounter (statuses as of 09/15/2023) Resolved Problems Problem Noted Date Diagnosed Date Resolved Date Glucose intolerance of 04/07/2023 04/17/2023 Overview: Elevated 1 hr GTT at 13 wks Food insecurity 10/13/2022 08/13/2023 Overview: Per [facility] Protocol documented as of this encounter (statuses as of 09/15/2023) Immunizations Name Administration Dates Next Due DTP [...] money to get more. Never true 07/17/2023 [place] Depression Scale Answer Date Recorded [place] Depression Scale Total 0 08/31/2023 The thought [...] Sign Reading Time Taken Comments Blood Pressure 112/70 09/15/2023 11:30 AM EDT Pulse - - Temperature - - Respiratory Rate - - Oxygen Saturation - - Inhaled Oxygen Concentration - - Weight 104.3 kg (230 lb) 09/15/2023 11:30 AM EDT Height - - Body Mass Index 37.12 08/18/2023 10:01 AM EDT documented in this encounter Progress Notes * Mandie Barahona CRNP - 09/15/2023 11:40 AM EDT 36w1d Intermittent cramping, resolves w/rest. No bleeding or leaking, baby is moving well. Received office notes from 2017 and 2019 at [facility], no delivery record. Will attempt to obtain this. S>D, will schedule growth scan. GBS today. 1 week return Manager Flight Operations Documentation Provider requested primary care sales representative. Name of primary care sales representative: MICHAEL Landaverde * Arely Jose LPN - 09/15/2023 11:31 AM EDT 36w1d Denies vaginal bleeding/rom + movement Cramping that comes and goes documented in this encounter Plan of Treatment Upcoming Encounters Date Type Department Care Team (Late st Contact Info) Description 09/18/2023 11:15 AM EDT Imaging Radiology [facility] 2nd [facility] [place] [address] [place] [address] 09/21/2023 11:30 AM EDT Office Visit Gynecology/Obstetrics [facility] [address] [place] [address] Gisel Willett PA-C [address] [place] [address] 09/29/2023 11:30 AM EDT Office Visit Gynecology/Obstetrics [facility] [address] [place] [address] Mandie Barahona CRNP [address] [place] [address] Pending Results Name Type Priority Associated Diagnoses Date /Time GROUP B STREP CULTURE/PCR Lab Routine Normal in third trimester 09/15/2023 11:51 AM EDT Scheduled Orders Name Type Priority Associated Diagnoses Orde r Schedule US PREG FOLLOW-UP EACH FETUS Medical Imaging Routine Normal in third trimester Uterine size date discrepancy Expected: 09/15/2023 (Approximate), Expires: 10/15/2024 Health Maintenance Due Date Last Done Comments [...] complication documented in this encounter Care Teams Scrap Crusher Relationship Specialty Start Date End Date Wanda Rodriguez MD [address] [place] [address] [place] [phone] PCP - General Family Medicine 10/21/22 documented as of this encounter
--- OUTSIDE RECORDS SUMMARY | 2023-10-16 02:08 | External Medical Summary | Summary of Care ---
Author Name Unknown Organization [facility] Address [address] [facility] [address] Phone [phone] Care Team Providers Care Afloat Cryptologic Manager Name Role Phone Wanda Rodriguez MD Primary Care Provide r Reason for Visit * Reason Comments Return Visit Encounter Details Date Type Department Care Team (Late st Contact Info) Description 09/15/2023 11:30 AM EDT Office Visit Gynecology/Obstetric s Wendy Jones [address] [place] [address] Mandie Barahona CRNP [address] [place] [address] Normal in third trimester*; Obesity in , [...] money to get more. Never true 07/17/2023 [place] Depression Scale Answer Date Recorded [place] Depression Scale Total 0 08/31/2023 The thought [...] office notes from 2017 and 2019 at [facility], no delivery record. Will attempt to obtain this. S>D, will schedule growth scan. GBS today. 1 week return Black Topper Documentation Provider requested industrial gas servicer supervisor. Name of industrial gas servicer supervisor: MICHAEL Landaverde * Arely Jose LPN - 09/15/2023 11:31 AM EDT 36w1d Denies vaginal bleeding/rom + movement Cramping that comes and goes documented in this encounter Plan of Treatment Upcoming Encounters Date Type Department Care Team (Late st Contact Info) Description 09/18/2023 11:15 AM EDT Imaging Radiology [facility] 2nd [facility] [place] [address] [place] [address] 09/21/2023 11:30 AM EDT Office Visit Gynecology/Obstetrics [facility] [address] [place] [address] Gisel Willett PA-C [address] [place] [address] 09/29/2023 11:30 AM EDT Office Visit Gynecology/Obstetrics [facility] [address] [place] [address] Mandie Barahona CRNP [address] [place] [address] Pending Results Name Type Priority Associated Diagnoses [...] complication documented in this encounter Care Teams Afloat Cryptologic Manager Relationship Specialty Start Date End Date Wanda Rodriguez MD [address] [place] [address] [place] [phone] PCP - General Family Medicine 10/21/22 documented as of this encounter
--- OUTSIDE RECORDS SUMMARY | 2023-10-16 02:08 | External Medical Summary | Summary of Care ---
Author Name Unknown Organization [facility] Address [address] [facility] [place] [address] Phone [phone] Care Team Providers Care Hall Tender Name Role Phone Wanda Rodriguez MD Primary Care Provide r Reason for Visit * Reason Comments Return Visit Encounter Details Date Type Department Care Team (Late st Contact Info) Description 08/31/2023 11:45 AM EDT Office Visit Gynecology/Obstetric s Wendy Jones [address] [place] [address] Gisel Willett PA-C [address] [place] [address] Normal in third trimester*; Obesity in , [...] money to get more. Never true 07/17/2023 [place] Depression Scale Answer Date Recorded [place] Depression Scale Total 0 08/31/2023 The thought [...] 09/14/2023 11:30 AM EDT [facility] [address] [place] [address] Gisel Willett PA-C [address] [place] [address] 09/21/2023 11:30 AM EDT [facility] [address] [place] [address] Gisel Willett PA-C [address] [place] [address] 09/29/2023 11:30 AM EDT Office [facility] [address] [place] [address] Mandie Barahona CRNP [address] [place] [address] Health Maintenance Due Date Last Done Comments [...] trimester documented in this encounter Care Teams Hall Tender Relationship Specialty Start Date End Date Wanda Rodriguez MD [address] [place] [address] [place] [address] PCP - General Family Medicine 10/21/22 documented as of this encounter
--- OUTSIDE RECORDS SUMMARY | 2023-10-16 02:09 | External Medical Summary ---
Author Name Unknown Address Unknown Organization K0G:[facility] [address] - [address] [place] [id number] Laboratory Report Ordering Provider Test Date Status CAROLINE LOPEZ 07/20/2023 12:07:51 Final Observation Date Value Abnormality Reference (Units ) Status Glucose [Mass/volume] in Serum or Plasma --3 hours post dose glucose 07/20/2023 12:07:51 67 Below low normal 70-139 (mg/dL) Final Performing Location LAB[facility]ATORY [place] [facility] [address] - [address] [place] [id number]
--- OUTSIDE RECORDS SUMMARY | 2023-10-16 02:09 | External Medical Summary | Summary of Care ---
Author Name Unknown Organization [facility] Address [address] [facility] [address] [address] Phone [phone] Care Team Providers Care Greens Tier Name Role Phone Wanda Rodriguez MD Primary Care Provide r Reason for Visit * Reason Comments Return Visit Encounter Details Date Type Department Care Team (Late st Contact Info) Description 05/11/2023 9:45 AM EST Office Visit Gynecology/Obstetric s [address] [place] [address] Norma Osei CRNP [address] [place] [address] Normal in second trimester*; Obesity in , antepartum; Tobacco smoking affecting in second trimester Allergies Active Allergy Reactions Criticality Noted Date Comments Amoxicillin-Pot Clavulanate 07/14/19 08 hives documented as of this encounter (statuses as of 05/11/2023) Medications Medication Sig Dispensed Refills Start Date End Date Status 28-0.8 MG Oral Tablet Take by mouth. 0 Active Ondansetron HCl 4 MG Oral TabletIndications :Nausea and vomiting in Take 1 Tablet by mouth every 8 hours as needed for Nausea. 20 Tablet 2 04/07/2023 Active Vitamin B-6 25 MG Oral Tablet Take 1 Tablet by mouth in the morning and 1 Tablet at noon and 1 Tablet in the evening. 0 05/11/2023 Discontinued (Medication List Clean Up) documented as of this encounter (statuses as of 05/11/2023) Active Problems Problem Noted Date Diagnosed Date [...] as of this encounter (statuses as of 05/11/2023) Resolved Problems Problem Noted Date Diagnosed Date Resolved Date Glucose intolerance of 04/07/2023 04/17/2023 Overview: Elevated 1 hr GTT at 13 wks documented as of this encounter (statuses as of 05/11/2023) Immunizations Name Administration Dates Next Due DTP Vaccine 10/09/1994,08/06/1994,03/25/1994 DTaP Dipth/Tet/Acell Pertussis (Infanrix), Peds 12/13/1998,08/18/1995 HIB PRP-T, 4 dose (ActHib) 05/08/1995,,08/06/1994, 994 HPV Vaccine, 4-Valent 06/20/2009,02/14/2009,06/2007 Hepatitis B, 0-19 yrs 08/06/1994,03/25/1994,12/03 IPV - Polio Virus Vaccine (Inact) 01/29/2000 MMR - Measles/Mumps/Rubella Vaccine 12/13/1998,0 05/08/1995 OPV - Polio Virus Vaccine (Oral) 05/08/1995,09/1994,03/25/1994 TB Dennise Test 12/22/1994 Varicella Vaccine (Chicken Pox) 05/08/1995 documented as of this encounter Social History Tobacco Use Types Packs/Day Years Used Date Smoking Tobacco: Every Day Vaporizer Smokeless Tobacco: Never Alcohol Use Standard Drinks/Week Comments Not Currently 0 (1 standard drink = 0.6 oz pur e alcohol) occ Hunger Vital Sign Answer Date Recorded Within the past 12 months, y ou worried that your food would run out before you got the money to buy more. Never true Within the past 12 months, t he food you bought just didn't last and you didn't have money to get more. Sometimes true [place] Depression Scale Answer Date Recorded [place] Depression Scale Total 2 03/10/2023 The thought of harming myself has occurred to me . Never 03/10/2023 Estimated Date of Delivery Comme nts Yes [...] Sign Reading Time Taken Comments Blood Pressure 110/60 05/11/2023 9:46 AM EST Pulse - - Temperature - - Respiratory Rate - - Oxygen Saturation - - Inhaled Oxygen Concentration - - Weight 87.1 kg (192 lb) 05/11/2023 9:46 AM EST Height 168 cm (5' 6.14") 05/11/2023 9:46 AM EST Body Mass Index 30.86 05/11/2023 9:46 AM EST documented in this encounter Progress Notes * Norma Osei CRNP - 05/11/2023 9:50 AM EST 18w C/o headaches daily, supplement list given to pt. Cramping for a week, has not had to take anything for the pain. Pain is just under umbilicus. Suspect constipation/bowel related pain. Only having BM every few days. Recommend colace 1-2 times daily,Miralax if needed. Taking zofran once a day for improvement in nausea/vomiting, but still struggling with nausea unless she is eating. Suggested she take zofran in the morning as well. Hasn't felt any FM yet. Anatomy u/s in 2-4 weeks. MICHAEL Bland * Amalia Vivar LPN - 05/11/2023 9:47 AM EST 18w1d Cramping for a week has not taken anything HU's daily going to migraines denies any vision changes documented in this encounter Plan of Treatment Upcoming Encounters Date Type Department Care Team (Late st Contact Info) Description 05/25/2023 9:15 AM EST Imaging Radiology [address] [place] [address] 06/08/2023 9:30 AM EST Office Visit Gynecology/Obstetrics [address] [place] [address] Norma Osei CRNP [address] [place] [address] Scheduled Orders Name Type Priority Associated Diagnoses Orde r Schedule US PREG SINGLE/1ST GEST, 14 WEEKS OR LATER Medical Imaging Routine Normal in second trimester Expected: 05/25/2023 (Approximate), Expires: 06/11/2024 Health Maintenance Due Date Last Done Comments COVID-19 Vaccine (#1) 06/28/1994 Pneumococcal Vaccine: Pediatrics (0 to 5 Years) and At-Risk Patients (6 to 64 Years) (1 - PCV) 12/27/1999 Depression Screening 2005 DTaP,Tdap,and Td Vaccines (7 - Tdap) 01/30/2015 01/30/2005, 12/13/1998, 08/18/1995, Additional history exists Influenza Vaccine (FLU shot) (#1) 2023 Pap Smear 10/08/2025 10/08/2022 Hepatitis B Completed 08/06/1994, 03/05, 1993 MENINGOCOCCAL (MENACTRA/MENVEO) Aged Out 01/30/2005 No longer eligible based on patient's age to complete this topic GARDASIL-HPV IMMUNIZATION SERIES Completed 06/20/2009, 02/14/2009, 09/03/2007 documented as of this encounter Medical Devices Not on filedocumented as of this encounter Visit Diagnoses Diagnosis Normal in second trimester- Primary Obesity in , antepartum Obesity complicating , childbirth, or the puerperium, antepartum condition or complication Tobacco smoking affecting in second trimester documented in this encounter Care Teams Greens Tier Relationship Specialty Start Date End Date Wanda Rodriguez MD [address] [place] [address] [place] [phone] PCP - General Family Medicine 10/21/22 documented as of this encounter
--- OUTSIDE RECORDS SUMMARY | 2023-10-16 02:09 | External Medical Summary | Summary of Care ---
Author Name Unknown Organization [facility] Address [address] [facility] [place] [address] Phone [phone] Care Team Providers Care Trade Embalmer Name Role Phone Wanda Rodriguez MD Primary Care Provide r Reason for Visit * Reason Comments Outpatient Testing Encounter Details Date Type Department Care Team (Late st Contact Info) Description 07/20/2023 9:50 AM EDT Laboratory [facility] [address] [facility] [address] Normal in second trimester Allergies Active Allergy Reactions Criticality Noted Date Comments Amoxicillin-Pot Clavulanate 07/14/19 08 hives documented as of this encounter (statuses as of 07/20/2023) Medications Medication Sig Dispensed Refills Start Date End Date Status 28-0.8 MG Oral Tablet Take by mouth. 0 Active Ondansetron HCl 4 MG Oral TabletIndications:Brian sea and vomiting in Take 1 Tablet by mouth every 8 hours as needed for Nausea. 20 Tablet 2 06/09/2023 Active documented as of this encounter (statuses as of 07/20/2023) Active Problems Problem Noted Date Diagnosed Date [...] as of this encounter (statuses as of 07/20/2023) Resolved Problems Problem Noted Date Diagnosed Date Resolved Date Glucose intolerance of 04/07/2023 04/17/2023 Overview: Elevated 1 hr GTT at 13 wks documented as of this encounter (statuses as of 07/20/2023) Immunizations Name Administration Dates Next Due DTP [...] money to get more. Never true 07/17/2023 [place] Depression Scale Answer Date Recorded [place] Depression Scale Total 1 07/20/2023 The thought [...] Care Team (Late st Contact Info) Description 08/04/2023 11:15 AM EDT Office Visit Gynecology/Obstetrics [address] [place] [address] Aundrea Higginbotham MD [address] [place] [address] [place] [phone] Pending Results Name Type Priority Associated Diagnoses Date /Time GESTATIONAL GLUCOSE TOLERANCE, 3 HOUR Lab Routine Normal in second trimester 07/20/2023 9:06 AM EDT CBC WITH WBC DIFFERENTIAL AND ANEMIA REFLEX WORKUP Lab Routine Normal in second trimester 07/20/2023 9:06 AM EDT SYPHILIS ANTIBODY SCREEN WITH REFLEX TO RPR Lab Routine Normal in second trimester 07/20/2023 9:06 AM EDT ANEMIA CBC Lab Routine Normal in second trimester 07/20/2023 9:06 AM EDT DIFFERENTIAL, AUTOMATED Lab Routine Normal in second trimester 07/20/2023 9:06 AM EDT ANEMIA REFLEX CHEMISTRY HOLD Lab Routine Normal in second trimester 07/20/2023 9:06 AM EDT SYPHILIS ANTIBODY SCREEN Lab Routine Normal in second trimester 07/20/2023 9:06 AM EDT 100-G GESTATIONAL GLUCOSE, 2 HOUR Lab Routine Normal in second trimester 07/20/2023 11:07 AM EDT 100-G GESTATIONAL GLUCOSE, 3 HOUR Lab Routine Normal in second trimester 07/20/2023 12:07 PM EDT Health Maintenance Due Date Last Done Comments Pneumococcal Vaccine: Pediatrics (0 to 5 Years) and At-Risk Patients (6 to 64 Years) (1 of 2 - PCV) 12/27/1999 COVID-19 Vaccine (1 - 2022-24 season) 2023 Influenza Vaccine (FLU shot) (#1) 2023 Depression Screening 07/19/2024 07/20/2023 Pap Smear 10/08/2025 [...] Procedure Name Priority Date/Time Associated Diagnosis Comments 100-G GESTATIONAL GLUCOSE, 1 HOUR Routine 07/20/2023 10:08 AM EDT Normal in second trimester 100-G GESTATIONAL GLUCOSE, FASTING Routine 07/20/2023 9:06 AM EDT Normal in second trimester documented in this encounter Results * 100-G GESTATIONAL GLUCOSE, 1 HOUR (07/20/2023 10:08 AM EDT) [facility] 100-g Gestational Glucose, 1 Hour 160 70 - 179 mg/dL 07/20/2023 10:57 AM EDT LABORATORY [place] [facility] [address] Blood Venous blood specimen / Unknown Venipuncture / Unknown 07/20/2023 10:08 AM EDT 07/20/2023 10:08 AM EDT Norma Mg Farnaz RODRIGUEZ LAB BLOOD ORDERABLES [facility] [place] [facility] [address] [place] [address] * 100-G GESTATIONAL GLUCOSE, FASTING (07/20/2023 9:06 AM EDT) 100-g Gestational Glucose, Fasting 83 70 - 94 mg/dL 07/20/2023 10:25 AM EDT [facility]ORY [place] 57-10 Blood Venous blood specimen / Unknown Venipuncture / Unknown 07/20/2023 9:06 AM EDT 07/20/2023 9:06 AM EDT Narrative [facility] 57-[address] - 07/20/2023 10:25 AM EDT Based on ACOG guideline, gestational diabetes mellitus is diagnosed when any of the following is met: Fasting is greater than or equal to 95 mg/dL 1 hour is greater than or equal to 180 mg/dL 2 hour is greater than or equal to 155 mg/dL 3 hour is greater than or equal to 140 mg/dL Norma Mg Farnaz RODRIGUEZ LAB BLOOD ORDERABLES [facility] [address] [place] [address] documented in this encounter Visit Diagnoses Diagnosis Normal in second trimester documented in this encounter Care Teams Trade Embalmer Relationship Specialty Start Date End Date Wanda Rodriguez MD [address] [place] [address] [place] [phone] PCP - General Family Medicine 10/21/22 documented as of this encounter
--- OUTSIDE RECORDS SUMMARY | 2023-10-16 02:09 | External Medical Summary | Summary of Care ---
Author Name Unknown Organization [facility] Address [address] [facility] [place] [address] Phone [phone] Care Team Providers Care Accounts Manager Name Role Phone Wanda Rodriguez MD Primary Care Provide r Reason for Visit * Reason Onset Date Comments Medication Refill 06/09/2023 Encounter Details Date Type Department Care Team (Late st Contact Info) Description 06/09/2023 Refill Gynecology/Obstetrics [facility] [address] [place] [address] Jessica Osei CRNP [address] [place] [address] Nausea and vomiting in Allergies Active Allergy Reactions Criticality Noted Date Comments Amoxicillin-Pot Clavulanate 07/14/19 08 hives documented as of this encounter (statuses as of 06/09/2023) Medications Medication Sig Dispensed Refills Start Date End Date Status 28-0.8 MG Oral Tablet Take by mouth. 0 Active Ondansetron HCl 4 MG Oral TabletIndications :Nausea and vomiting in Take 1 Tablet by mouth every 8 hours as needed for Nausea. 20 Tablet 2 06/09/2023 Active Ondansetron HCl 4 MG Oral TabletIndications :Nausea and vomiting in Take 1 Tablet by mouth every 8 hours as needed for Nausea. 20 Tablet 2 04/07/2023 06/09/2023 Discontinued( Refill) documented as of this encounter (statuses as of 06/09/2023) Active Problems Problem Noted Date Diagnosed Date [...] as of this encounter (statuses as of 06/09/2023) Resolved Problems Problem Noted Date Diagnosed Date Resolved Date Glucose intolerance of 04/07/2023 04/17/2023 Overview: Elevated 1 hr GTT at 13 wks documented as of this encounter (statuses as of 06/09/2023) Immunizations Name Administration Dates Next Due DTP [...] have money to get more. Sometimes true [place] Depression Scale Answer Date Recorded [place] Depression Scale Total 2 03/10/2023 The thought [...] encounter Miscellaneous Notes * Telephone Encounter - Jessica Osei CRNP - 06/09/2023 9:50 AM ESTSigned Prescriptions: Disp Refills Ondansetron HCl 4 MG Oral Tablet 20 Tab*2 Sig: Take 1 Tablet by mouth every 8 hours as needed for Nausea. Authorizing Provider: JESSICA OSEI * Telephone Encounter - Raven Sanderson RN - 06/09/2023 9:45 AM ESTPending Prescriptions: Disp Refills Ondansetron HCl 4 MG Oral Tablet 20 Tab*2 Sig: Take 1 Tablet by mouth every 8 hours as needed for Nausea. * Telephone Encounter - Ml Laguerre OSA - 06/09/2023 7:55 AM EST Pt is requesting a refill on the Ondansetron as she forgot to ask for it at her recent appt. She also mentioned that Jessica Penningtonyesi told her it was okay for her to take Prilosec and is asking if she can also get a script for that as well? * Telephone Encounter - Ml Laguerre OSA - 06/09/2023 7:53 AM EST Did you pend patient's preferred pharmacy and medication before forwarding?yes Pharmacy: [facility] [address] [place] [address] Pending Prescriptions: Disp Refills Ondansetron HCl 4 MG Oral Tablet 20 Tab*2 Sig: Take 1 Tablet by mouth every 8 hours as needed for Nausea. Last Visit: 04/07/2023 (in office), Visit date not found (telemedicine) Next Visit: Visit date not found If no future appointments scheduled, and last appointment is greater than a year ago, please schedule patient for a follow-up appointment Last date the medication was ordered: 04/07/2023 Is this request for a controlled substance?No Urine Drug Screen:No results found for this or any previous visit. Patient Phone Numbers Labs: Lab Results Component Value Date/Time CREAT 0.6 04/07/2023 12:53 PM CREAT 0.6 (L) 09/28/2007 09:06 AM POTASSIUM 3.5 04/07/2023 12:53 PM POTASSIUM 4.6 11/21/2009 10:51 AM TSH 2.44 04/07/2023 12:53 PM TSH 0.64 11/21/2009 10:51 AM ALT 17 09/28/2007 09:06 AM documented in this encounter Plan of Treatment Upcoming Encounters Date Type Department Care Team (Late st Contact Info) Description 07/06/2023 9:30 AM EST Office Visit Gynecology/Obstetrics [address] [place] [address] Jessica Osei CRNP [address] [place] [address] Health Maintenance Due Date Last Done Comments [...] as of this encounter Visit Diagnoses Diagnosis Nausea and vomiting in Unspecified vomiting of , unspecified as to episode of care documented in this encounter Care Teams Accounts Manager Relationship Specialty Start Date End Date Wanda Rodriguez MD [address] [place] [address] [place] [address] PCP - General Family Medicine 10/21/22 documented as of this encounter
--- OUTSIDE RECORDS SUMMARY | 2023-10-16 02:09 | External Medical Summary | Summary of Care ---
Author Name Unknown Organization [facility] Address [address] [place] [address] Phone [phone] Care Team Providers Care Technical Solution Architect Name Role Phone Wanda Rodriguez MD Primary Care Provide r Reason for Visit * Reason Comments Return Visit Encounter Details Date Type Department Care Team (Late st Contact Info) Description 08/03/2023 1:30 PM EDT Office Visit Gynecology/Obstetric s [facility] [address] [facility] [place] [address] Poly Grullon CNM [address] [facility] [place] [phone] Normal in third trimester*; Obesity in , [...] money to get more. Never true 07/17/2023 [place] Depression Scale Answer Date Recorded [place] Depression Scale Total 1 07/20/2023 The thought [...] documented in this encounter Progress Notes * Poly Grullon CNM - 08/03/2023 1:30 PM EDT Amna Braga is a 27 year old female [...] counts reviewed - RTO in 2 weeks Poly Grullon CNM documented in this encounter Nursing Notes * Raven Sanderson RN - 08/03/2023 1:20 PM EDT Patient here for ALICIA 30w0d No concerns + FM Raven Sanderson RN documented in this encounter Plan of Treatment Upcoming Encounters Date Type Department Care Team (Late st Contact Info) Description 08/18/2023 10:00 AM EDT Office Visit Gynecology/Obstetrics [facility] [address] [place], [place] [address] Norma Osei CRNP [address] [place] [address] 08/31/2023 11:45 AM EDT Office Visit Gynecology/Obstetrics [facility] [address] [place] [address] Gisel Willett PA-C [address] [place] [address] 09/14/2023 11:30 AM EDT Office Visit Gynecology/Obstetrics [facility] [address] [place] [address] Gisel Willett PA-C [address] [place] [address] 09/21/2023 11:30 AM EDT Office Visit Gynecology/Obstetrics [facility] [address] [facility] [place] [address] Gisel Willett PA-C [address] [place] [address] 09/29/2023 11:30 AM EDT Office Visit Gynecology/Obstetrics [facility] [address] [facility] [place] [address] Mandie Barahona CRNP [address] [place] [address] 10/05/2023 11:30 AM EDT Office Visit Gynecology/Obstetrics [facility] [address] [facility] [place] [address] Farzana Donnelly, [address] [place] [address] Pending Results Name Type Priority Associated Diagnoses Date /Time VAGINOSIS PANEL, PCR Lab Routine Vaginal discharge 08/03/2023 1:41 PM EDT Scheduled Orders Name Type Priority Associated Diagnoses Orde r Schedule VAGINOSIS PANEL, PCR Lab Routine Vaginal discharge Expected: 08/03/2023, Expires: 08/02/2024 Health Maintenance Due Date Last Done Comments [...] infective documented in this encounter Care Teams Technical Solution Architect Relationship Specialty Start Date End Date Wanda Rodriguez MD [address] [place] [address] [place] [address] PCP - General Family Medicine 10/21/22 documented as of this encounter
--- OUTSIDE RECORDS SUMMARY | 2023-10-16 02:09 | External Medical Summary | Summary of Care ---
Author Name Unknown Organization [facility] Address [address] [facility] [place] [address] Phone [phone] Care Team Providers Care Slasher Operator Name Role Phone Wanda Rodriguez MD Primary Care Provide r Encounter Details Date Type Department Care Team (Late st Contact Info) Description 07/07/2023 Orders Only PATIENT PORTAL DO NOT DELETE THIS DEPT USED BY [place] [id number] Allergies Active Allergy Reactions Criticality Noted Date Comments Amoxicillin-Pot Clavulanate 07/14/19 08 hives documented as of this encounter (statuses as of 07/07/2023) Medications Medication Sig Dispensed Refills Start Date End Date Status 28-0.8 MG Oral Tablet Take by mouth. 0 Active Ondansetron HCl 4 MG Oral TabletIndications:Brian sea and vomiting in Take 1 Tablet by mouth every 8 hours as needed for Nausea. 20 Tablet 2 06/09/2023 Active documented as of this encounter (statuses as of 07/07/2023) Active Problems Problem Noted Date Diagnosed Date [...] as of this encounter (statuses as of 07/07/2023) Resolved Problems Problem Noted Date Diagnosed Date Resolved Date Glucose intolerance of 04/07/2023 04/17/2023 Overview: Elevated 1 hr GTT at 13 wks documented as of this encounter (statuses as of 07/07/2023) Immunizations Name Administration Dates Next Due DTP [...] have money to get more. Sometimes true [place] Depression Scale Answer Date Recorded [place] Depression Scale Total 2 03/10/2023 The thought [...] Team (Late st Contact Info) Description 07/20/2023 9:00 AM EDT [facility] [address] [place] [address] Gisel Willett PA-C [address] [place] [address] Health Maintenance Due Date Last Done Comments Pneumococcal Vaccine: Pediatrics (0 to 5 Years) and At-Risk Patients (6 to 64 Years) (1 of 2 - PCV) 12/27/1999 Depression Screening 2005 DTaP,Tdap,and Td Vaccines (7 - Tdap) 01/30/2015 01/30/2005, 12/13/1998, 08/18/1995, Additional history exists COVID-19 Vaccine ( season) 2023 Influenza Vaccine (FLU shot) (#1) 2023 Pap Smear 10/08/2025 10/08/2022 Hepatitis B Completed 08/06/1994, 03/05, 1993 MENINGOCOCCAL (MENACTRA/MENVEO) Aged Out 01/30/2005 No longer eligible based on patient's age to complete this topic GARDASIL-HPV IMMUNIZATION SERIES Completed 06/20/2009, 02/14/2009, 09/03/2007 documented as of this encounter Medical Devices Not on filedocumented as of this encounter Care Teams Slasher Operator Relationship Specialty Start Date End Date Wanda Rodriguez MD [address] [place] [address] [place] [address] PCP - General Family Medicine 10/21/22 documented as of this encounter
--- OUTSIDE RECORDS SUMMARY | 2023-10-16 02:09 | External Medical Summary ---
Author Name Unknown Address Unknown Organization K0G:[facility] [[email or web address]] [place] [address] - [address] [place] [address] Laboratory Report Ordering Provider Test Date Status CAROLINE LOPEZ 07/20/2023 10:08:43 Final Observation Date Value Abnormality Reference (Units ) Status Glucose [Mass/volume] in Serum or Plasma --1 hour post dose glucose 07/20/2023 10:08:43 160 70-179 (mg/dL) Final Performing Location [facility] [[email or web address]] [place] [address] 0 - [address] [place] [address]
--- OUTSIDE RECORDS SUMMARY | 2023-10-16 02:09 | External Medical Summary | Summary of Care ---
Author Name Unknown Organization [facility] Address [address] [facility] [place] [address] Phone [phone] Care Team Providers Care Senior Drafter Name Role Phone Wanda Rodriguez MD Primary Care Provide r Encounter Details Date Type Department Care Team (Late st Contact Info) Description 03/06/2023 Telephone Gynecology/Obstetrics [facility] [address] [place] [address] BackMandie sykes CRNP [address] [place] [address] Allergies Active Allergy Reactions Criticality Noted Date Comments Amoxicillin-Pot Clavulanate 07/14/19 08 hives documented as of this encounter (statuses as of 06/05/2023) Medications No known medicationsdocumented as of this encounter (statuses as of 06/05/2023) Active Problems Problem Noted Date Diagnosed Date [...] as of this encounter (statuses as of 06/05/2023) Resolved Problems Problem Noted Date Diagnosed Date Resolved Date Glucose intolerance of 04/07/2023 04/17/2023 Overview: Elevated 1 hr GTT at 13 wks documented as of this encounter (statuses as of 06/05/2023) Immunizations Name Administration Dates Next Due DTP [...] have money to get more. Sometimes true [place] Depression Scale Answer Date Recorded [place] Depression Scale Total 2 03/10/2023 The thought [...] encounter Miscellaneous Notes * Telephone Encounter - Amalia Vivar LPN - 03/06/2023 12:50 PM EDT Called pt to do nurse intake lm to return call triage number was provided documented in this encounter Plan of Treatment Upcoming Encounters Date Type Department Care Team (Late st Contact Info) Description 06/08/2023 9:30 AM EST Office Visit Gynecology/Obstetrics [address] [place] [address] Norma Osei CRNP [address] [place] [address] Health Maintenance Due Date Last Done Comments [...] filedocumented as of this encounter Care Teams Senior Drafter Relationship Specialty Start Date End Date Wanda Rodriguez MD [address] [place] [address] [place] [address] PCP - General Family Medicine 10/21/22 documented as of this encounter
--- OUTSIDE RECORDS SUMMARY | 2023-10-16 02:09 | External Medical Summary ---
Author Name Unknown Address Unknown Organization [id number]:[facility] [place] - [address] [facility] [address] [facility] [address] Laboratory Report Ordering Provider Test Date Status SYLVIA AGUIRRE 08/03/2023 13:41:36 Final Observation Date Value Abnormality Reference (Units ) Status Bacterial vaginosis [Interpretation] in Vaginal fluid Qualitative 08/03/2023 13:41:36 Negative Negative Final Negative for Bacterial Vagin osis. Correlate results with other clinical findings. Mignon sp DNA [Presence] in Vaginal fluid by Probe 08/03/2023 13:41:36 Positive Abnormal Negative Final Mignon species group RNA de tected. Correlate results with other clinical findings. Mignon glabrata RNA [Presen ce] in Vaginal fluid by BRANDT with probe detection 08/03/2023 13:41:36 Negative Negative Final No Mignon glabrata RNA dete cted. Correlate results with other clinical findings. Trichomonas vaginalis DNA [P resence] in Vaginal fluid by Probe 08/03/2023 13:41:36 Negative Negative Final No Trichomonas vaginalis RNA detected. Performing Location [facility] - [address] [facility] [address]
--- OUTSIDE RECORDS SUMMARY | 2023-10-16 02:09 | External Medical Summary | Summary of Care ---
Author Name Unknown Organization [facility] Address [address] [facility] [address] Phone [phone] Care Team Providers Care Precision Agronomist Name Role Phone Wanda Rodriguez MD Primary Care Provide r Reason for Visit * Reason Onset Date Comments Advice 02/24/2023 Patient is sched uled 03/06 for dating US. Order says estimated date should be 03/22 (approx). Is this ok? Please advise.ultrasound Encounter Details Date Type Department Care Team (Late st Contact Info) Description 02/24/2023 Telephone Radiology [address] [place] [phone] Backer, MICHAEL Hyman [address] [facility] [address] Advice (Patient is scheduled 03/06 for dati... Allergies Active Allergy Reactions Criticality Noted Date Comments Amoxicillin-Pot Clavulanate 07/14/19 08 hives documented as of this encounter (statuses as of 05/26/2023) Medications Medication Sig Dispensed Refills Start Date End Date Status SUMAtriptan Succinate 50 MG Oral Tablet (Imitrex)Indicatio ns:Migraine variant Take 2 tablets at onset of migraine and one tablet every 2 hours as needed, not more than 5 tablets in 24 hours 6 Tablet 11 01/22/2023 03/10/2023 Discontinued (Medication List Clean Up) Naproxen 500 MG Oral Tablet (Naprosyn)Indicati ons:Episodic tension-type headache, not intractable Take 1 Tablet by mouth 2 times a day as needed (Headahce). 40 Tablet 0 01/22/2023 03/10/2023 Discontinued (Medication List Clean Up) documented as of this encounter (statuses as of 05/26/2023) Active Problems Problem Noted Date Diagnosed Date [...] episode 10/01/2022 VACCIN FOR DISEASE NEC 01/30/2005 documented as of this encounter (statuses as of 05/26/2023) Resolved Problems Problem Noted Date Diagnosed Date Resolved Date Glucose intolerance of 04/07/2023 04/17/2023 Overview: Elevated 1 hr GTT at 13 wks documented as of this encounter (statuses as of 05/26/2023) Immunizations Name Administration Dates Next Due DTP [...] Tobacco: Never Alcohol Use Standard Drinks/Week Comments Yes 0 (1 standard drink = 0.6 oz [...] have money to get more. Sometimes true [place] Depression Scale Answer Date Recorded [place] Depression Scale Total 2 03/10/2023 The thought of harming myself has occurred to me . Never 03/10/2023 Sex and Gender Information Value Date Recorded Sex Assigned at Female 10/01/2022 10:43 AM EDT Gender Identity Female 10/01/2022 10:43 AM EDT Sexual Orientation Straight 10/01/2022 10 :43 AM EDT Job Start Date Occupation Industry Not on file Not on file Not on file documented as of this encounter Miscellaneous Notes * Telephone Encounter - Mandie Barahona CRNP - 02/24/2023 8:29 AM EDT 11/3 is fine. MICHAEL Robert * Telephone Encounter - Eda Ibanez RVT - 02/24/2023 8:13 AM EDT Sorry. I typed my initial message in the comments... patient is scheduled 03/06 for dating US but order states expected date 03/22 (approx) is it ok to perform /3 or does she need scheduled closer to the expected date? Please advise. - ultrasound documented in this encounter Plan of Treatment Upcoming Encounters Date Type Department Care Team (Late st Contact Info) Description 06/08/2023 9:30 AM EST Office Visit Gynecology/Obstetrics [address] [place] [address] Norma Osei CRNP [address] [place] [address] Health Maintenance Due Date Last Done Comments [...] filedocumented as of this encounter Care Teams Precision Agronomist Relationship Specialty Start Date End Date Wanda Rodriguez MD [address] [place] [address] [place] [address] PCP - General Family Medicine 10/21/22 documented as of this encounter
--- OUTSIDE RECORDS SUMMARY | 2023-10-16 02:09 | External Medical Summary ---
Author Name Unknown Address Unknown Organization K0G:[facility]ATORY [place] [address] - [address] [place] [address] Laboratory Report Ordering Provider Test Date Status JESSICACAROLINE 07/20/2023 09:06:25 Final Based on ACOG guideline, ges tational diabetes mellitus is diagnosed when any of the following is met:
Fasting is greater than or equal to 95 mg/dL
1 hour is greater than or equal to 180 mg/dL
2 hour is greater than or equal to 155 mg/dL
3 hour is greater than or equal to 140 mg/dL Observation Date Value Abnormality Reference (Units ) Status Glucose, fasting 07/20/2023 09:06:25 83 70- 94 (mg/dL) Final Performing Location LABORATORY [facility] [place] [address] - [address] [place] [address]
--- OUTSIDE RECORDS SUMMARY | 2023-10-16 02:09 | External Medical Summary ---
Author Name Unknown Address Unknown Organization K01:[facility] [place] [address] [place] [address] Laboratory Report Ordering Provider Test Date Status CAROLINE LOPEZ 07/20/2023 09:06:25 Final Observation Date Value Abnormality Reference (Units ) Status Treponema pallidum Ab [Presence] in Serum by Immunoassay 07/20/2023 09:06:25 Nonreactive Nonreactive Final No serologic evidence of syp hilis. No additional testing clinicially indicated at this time. Consider repeat testing in 2-4 weeks if acute or primary syphilis is suspected. Performing Location [facility] [place] [address] [place] [address]
--- OUTSIDE RECORDS SUMMARY | 2023-10-16 02:09 | External Medical Summary ---
Author Name Unknown Address Unknown Organization K01:LAB[facility]ORY [facility] [place] - [address] [place] [place] [address] Laboratory Report Ordering Provider Test Date Status CAROLINE LOPEZ 07/20/2023 09:06:25 Final Observation Date Value Abnormality Reference (Units ) Status SYNC LEUKOCYTES IN BLOOD BY AUTOMATED COUNT 07/20/2023 09:06:25 11.84 Above high normal 4.00-10.80 (K/uL) Final Segs 07/20/2023 09:06:25 75.9 Above high normal 40.0-75.0 (%) Final Lymphs % 07/20/2023 09:06:25 13.8 Below low normal 18.0-42.0 (%) Final Monos 07/20/2023 09:06:25 6.3 1.0-11.0 (%) Final Eosinophils 07/20/2023 09:06:25 1.3 0.0-6.0 (%) Final Basos 07/20/2023 09:06:25 0.3 0.0-2.0 (%) Final Immature Granulocyte, Percent 07/20/2023 09:06:25 2.4 Above high normal 0.0-2.0 (%) Final Absolute Segs 07/20/2023 09:06:25 9.00 Above high normal 1.80-7.70 (K/uL) Final Lymphs, absolute 07/20/2023 09:06:25 1.63 1.00-4.80 (K/ul) Final Monos, Abs 07/20/2023 09:06:25 0.74 0.00-1.10 (K/uL) Final Eos, Abs 07/20/2023 09:06:25 0.15 0.00-0.70 (K/uL) Final Basos, Abs 07/20/2023 09:06:25 0.04 0.00-0.20 (K/uL) Final Immature Granulocytes, Number 07/20/2023 09:06:25 0.28 Above high normal 0.00-0.20 (K/uL) Final Performing Location LAB[facility]ATORY [facility] - [facility] [address] [facility] [address]
--- OUTSIDE RECORDS SUMMARY | 2023-10-16 02:09 | External Medical Summary | Summary of Care ---
Author Name Unknown Organization [facility] Address [address] [place] [address] Phone [phone] Care Team Providers Care Geotechnical Engineer Name Role Phone Wanda Rodriguez MD Primary Care Provide r Reason for Visit * Reason Comments Return Visit Encounter Details Date Type Department Care Team (Late st Contact Info) Description 08/03/2023 1:30 PM EDT Office Visit Gynecology/Obstetric s [facility] [address] [facility] [place] [address] Poly Grullon CNM [address] [facility] [place] [phone] Normal in third trimester*; Obesity in , [...] money to get more. Never true 07/17/2023 [place] Depression Scale Answer Date Recorded [place] Depression Scale Total 1 07/20/2023 The thought [...] documented in this encounter Plan of Treatment Pending Results Name Type Priority Associated Diagnoses [...] - PCV) 12/27/1999 COVID-19 Vaccine (1 - season) 2023 Influenza Vaccine (FLU shot) (Season [...] infective documented in this encounter Care Teams Geotechnical Engineer Relationship Specialty Start Date End Date Wanda Rodriguez MD [address] [place] [address] [place] [phone] PCP - General Family Medicine 10/21/22 documented as of this encounter
--- OUTSIDE RECORDS SUMMARY | 2023-10-16 02:09 | External Medical Summary | Summary of Care ---
Author Name Unknown Organization [facility] [address] [facility] [address] Phone [phone] Care Team Providers Care Engine Assembly Supervisor Name Role Phone Wanda Rodriguez MD Primary Care Provide r Reason for Visit * Reason Onset Date Comments Fax 08/03/2023 Encounter Details Date Type Department Care Team (Late st Contact Info) Description 08/03/2023 Telephone Family Medicine [address] [place] [phone] Wanda Rodriguez MD [address] [place] [address] [place] [address] Fax Allergies Active Allergy Reactions Criticality Noted Date [...] money to get more. Never true 07/17/2023 [place] Depression Scale Answer Date Recorded [place] Depression Scale Total 1 07/20/2023 The thought [...] encounter Miscellaneous Notes * Telephone Encounter - Rebekah Villalta MED ASSIST - 08/03/2023 2:47 PM EDT Faxed medical request back to number provided. Called pt and informed of what's going on. Pt understand * Telephone Encounter - Braden Romero OSA - 08/03/2023 2:03 PM EDT Pt is requesting records from [place] to be faxed to [facility]. Pt states she was at [facility] a few times and signed the medical release form to obtain records from [facility]. Pt states [facility] received nothing. Fax: [phone] Pt requesting a callback. documented in this encounter Plan of Treatment Upcoming Encounters Date Type Department Care Team (Late st Contact Info) Description 08/18/2023 10:00 AM EDT Office Visit Gynecology/Obstetrics [facility] [address] [place] [address] Norma Osei CRNP [address] [place] [address] 08/31/2023 11:45 AM EDT Office Visit Gynecology/Obstetrics [facility] [address] [place] [address] Gisel Willett PA-C [address] [place] [address] 09/14/2023 11:30 AM EDT Office Visit Gynecology/Obstetrics [facility] [address] [place] [address] Gisel Willett PA-C [address] [place] [address] 09/21/2023 11:30 AM EDT Office Visit Gynecology/Obstetrics [facility] [address] [place] [address] Gisel Willett PA-C [address] [place] [address] 09/29/2023 11:30 AM EDT Office Visit Gynecology/Obstetrics [facility] [address] [place] [address] Mandie Barahona CRNP [address] [place] [address] 10/05/2023 11:30 AM EDT Office Visit Gynecology/Obstetrics [facility] [address] [place] [address] Farzana Donnelly, [address] [place] [address] Health Maintenance Due Date Last Done Comments Pneumococcal Vaccine: Pediatrics (0 to 5 Years) and At-Risk Patients (6 to 64 Years) (1 of 2 - PCV) 12/27/1999 COVID-19 Vaccine (1 - 24 season) 2023 Influenza Vaccine (FLU shot) (Season [...] filedocumented as of this encounter Care Teams Engine Assembly Supervisor Relationship Specialty Start Date End Date Wanad Rodriguez MD [address] [place] [address] [place] [address] PCP - General Family Medicine 10/21/22 documented as of this encounter
--- OUTSIDE RECORDS SUMMARY | 2023-10-16 02:09 | External Medical Summary | Summary of Care ---
Author Name Unknown Organization [facility] Address [address] [facility] [place] [address] Phone [phone] Care Team Providers Care Site Director Name Role Phone Wanda Rodriguez MD Primary Care Provide r Reason for Visit * Reason Comments Return Visit 28w0d Encounter Details Date Type Department Care Team (Late st Contact Info) Description 07/20/2023 9:00 AM EDT Office Visit Gynecology/Obstetric s [facility] [address] [place] [address] Gisel Willett PA-C [address] [place] [address] Normal in third trimester*; Obesity in , antepartum; Tobacco smoking affecting in third trimester; Need for ycqplrpkjb-lxszrno-jw rtussis (Tdap) vaccine Allergies Active Allergy Reactions Criticality Noted Date [...] money to get more. Never true 07/17/2023 [place] Depression Scale Answer Date Recorded [place] Depression Scale Total 1 07/20/2023 The thought [...] Sign Reading Time Taken Comments Blood Pressure 122/66 07/20/2023 9:12 AM EDT Pulse - - Temperature - - Respiratory Rate - - Oxygen Saturation - - Inhaled Oxygen Concentration - - Weight 97.8 kg (215 lb 9.6 oz) 07/20/2023 9:12 A M EDT Height - - Body Mass Index 34.65 07/06/2023 9:19 AM EST documented in this encounter Progress Notes * Gisel Willett PA-C - 07/20/2023 9:30 AM EDT 28w0d Completing 3 hour gtt today. Blood type A+, Rhogam not indicted. Counseled on Tdap, accepts. Pt asking if records received yet from [facility], chart reviewed and not back regarding delivery in 2015. She will reach out to [facility] [place] where she was seen in that regarding obtaining records. Pt states vaginal delivery, but cervix had to be manually opened. Denies VB, LOF, contractions. Pos fm. RTC in 2 weeks Gisel Willett PA-C documented in this encounter Nursing Notes * Pooja Muñoz CMA - 07/20/2023 9:11 AM EDT Chief Complaint Patient presents with Return Visit 28w0d Pt with no concerns for today. Pt doing 3 hr GTT today documented in this encounter Plan of Treatment Upcoming Encounters Date Type Department Care Team (Late st Contact Info) Description 08/04/2023 11:15 AM EDT Office Visit Gynecology/Obstetrics [facility] [address] [facility] [place] [address] Aundrea Higginbotham MD [address] [place] [address] [place] [address] Health Maintenance Due Date Last Done Comments [...] complication Tobacco smoking affecting in third trimester Need for cakgmkbmct-hohyjqj-awkeactfc (Tdap) vaccine Need for prophylactic vaccination with combined tvwhbikwii-snvflzn-vopbnlhgn (DTP) vaccine documented in this encounter Care Teams Site Director Relationship Specialty Start Date End Date Wanda Rodriguez MD [address] [place] [address] [place] [phone] PCP - General Family Medicine 10/21/22 documented as of this encounter
--- OUTSIDE RECORDS SUMMARY | 2023-10-16 02:09 | External Medical Summary | Summary of Care ---
Author Name Unknown Organization [facility] Address [address] [facility] [address] Phone [phone] Care Team Providers Care Desktop Administrator Name Role Phone Wanda Rodriguez MD Primary Care Provide r Reason for Visit * Reason Comments Return Visit Encounter Details Date Type Department Care Team (Late st Contact Info) Description 05/11/2023 9:45 AM EST Office Visit Gynecology/Obstetric s [address] [place] [address] Norma Osei CRNP [address] [place] [address] Normal in second trimester*; Obesity in , [...] have money to get more. Sometimes true [place] Depression Scale Answer Date Recorded [place] Depression Scale Total 2 03/10/2023 The thought [...] Description 05/25/2023 9:15 AM EST Imaging Radiology [address] [place] [address] Scheduled Orders Name Type Priority Associated Diagnoses [...] trimester documented in this encounter Care Teams Desktop Administrator Relationship Specialty Start Date End Date Wanda Rodriguez MD [address] [place] [address] [place] [phone] PCP - General Family Medicine 10/21/22 documented as of this encounter
--- OUTSIDE RECORDS SUMMARY | 2023-10-16 02:09 | External Medical Summary | Summary of Care ---
Author Name Unknown Organization [facility] Address [address] [facility] [address] Phone [phone] Care Team Providers Care Sample Hand Name Role Phone Wanda Rodriguez MD Primary Care Provide r Reason for Visit * Reason Comments Return Visit Encounter Details Date Type Department Care Team (Late st Contact Info) Description 06/08/2023 9:30 AM EST Office Visit Gynecology/Obstetric s [address] [place] [address] Norma Osei CRNP [address] [place] [address] Normal in second trimester*; Obesity in , antepartum; Tobacco smoking affecting in second trimester Allergies Active Allergy Reactions Criticality Noted Date Comments Amoxicillin-Pot Clavulanate 07/14/19 08 hives documented as of this encounter (statuses as of 06/08/2023) Medications Medication Sig Dispensed Refills Start Date End Date Status 28-0.8 MG Oral Tablet Take by mouth. 0 Active Ondansetron HCl 4 MG Oral TabletIndications:Brian sea and vomiting in Take 1 Tablet by mouth every 8 hours as needed for Nausea. 20 Tablet 2 04/07/2023 Active documented as of this encounter (statuses as of 06/08/2023) Active Problems Problem Noted Date Diagnosed Date [...] as of this encounter (statuses as of 06/08/2023) Resolved Problems Problem Noted Date Diagnosed Date Resolved Date Glucose intolerance of 04/07/2023 04/17/2023 Overview: Elevated 1 hr GTT at 13 wks documented as of this encounter (statuses as of 06/08/2023) Immunizations Name Administration Dates Next Due DTP [...] have money to get more. Sometimes true Transfer Depression Scale Answer Date Recorded Transfer Depression Scale Total 2 03/10/2023 The thought [...] Sign Reading Time Taken Comments Blood Pressure 114/60 06/08/2023 9:22 AM EST Pulse - - Temperature - - Respiratory Rate - - Oxygen Saturation - - Inhaled Oxygen Concentration - - Weight 88.9 kg (196 lb) 06/08/2023 9:22 AM EST Height 168 cm (5' 6.14") 06/08/2023 9:22 AM EST Body Mass Index 31.5 06/08/2023 9:22 AM EST documented in this encounter Progress Notes * Norma Osei CRNP - 06/08/2023 9:40 AM EST 22w C/o heartburn, reviewed meds safe in . No other concerns. Baby is moving, though has anterior placenta. No bleeding or LOF. MICHAEL Bland * Amalia Vivar LPN - 06/08/2023 9:22 AM EST 22w0d Heart burn documented in this encounter Plan of Treatment Upcoming Encounters Date Type Department Care Team (Late st Contact Info) Description 07/06/2023 9:30 AM EST Office Visit Gynecology/Obstetrics [address] [place] [address] Norma Osei CRNP [address] [place] [address] Health Maintenance Due Date Last Done Comments [...] trimester documented in this encounter Care Teams Sample Hand Relationship Specialty Start Date End Date Wanda Rodriguez MD [address] [place] [address] [place] [id number] PCP - General Family Medicine 10/21/22 documented as of this encounter
--- OUTSIDE RECORDS SUMMARY | 2023-10-16 02:09 | External Medical Summary | Summary of Care ---
Author Name Unknown Organization [facility] Address [address] [facility] [address] Phone [phone] Care Team Providers Care Wall Worker Name Role Phone Wanda Rodriguez MD Primary Care Provide r Reason for Visit * Reason Comments Return Visit Encounter Details Date Type Department Care Team (Late st Contact Info) Description 07/06/2023 9:30 AM EST Office Visit Gynecology/Obstetric s [address] [place] [address] Norma Osei CRNP [address] [place] [address] Normal in second trimester*; Obesity in , antepartum; Tobacco smoking affecting , antepartum Allergies Active Allergy Reactions Criticality Noted Date Comments Amoxicillin-Pot Clavulanate 07/14/19 08 hives documented as of this encounter (statuses as of 07/06/2023) Medications Medication Sig Dispensed Refills Start Date End Date Status 28-0.8 MG Oral Tablet Take by mouth. 0 Active Ondansetron HCl 4 MG Oral TabletIndications:Brian sea and vomiting in Take 1 Tablet by mouth every 8 hours as needed for Nausea. 20 Tablet 2 06/09/2023 Active documented as of this encounter (statuses as of 07/06/2023) Active Problems Problem Noted Date Diagnosed Date [...] as of this encounter (statuses as of 07/06/2023) Resolved Problems Problem Noted Date Diagnosed Date Resolved Date Glucose intolerance of 04/07/2023 04/17/2023 Overview: Elevated 1 hr GTT at 13 wks documented as of this encounter (statuses as of 07/06/2023) Immunizations Name Administration Dates Next Due DTP [...] have money to get more. Sometimes true [place] Depression Scale Answer Date Recorded [place] Depression Scale Total 2 03/10/2023 The thought [...] Sign Reading Time Taken Comments Blood Pressure 118/64 07/06/2023 9:19 AM EST Pulse - - Temperature - - Respiratory Rate - - Oxygen Saturation - - Inhaled Oxygen Concentration - - Weight 95.3 kg (210 lb) 07/06/2023 9:19 AM EST Height 168 cm (5' 6.14") 07/06/2023 9:19 AM EST Body Mass Index 33.75 07/06/2023 9:19 AM EST documented in this encounter Progress Notes * Norma Osei CRNP - 07/06/2023 9:47 AM EST 26w Asking about primary c/s. Reports having a rough delivery last time. No records available,though she states she has signed release multiple times. Will sign again today. Aware she will need to discuss with physician to determine if c/s is medically indicated. Would want BTL if c/s performed. No other concerns. Feeling FM, varies from day to day. Has anterior placenta. No contractions, bleeding, LOF. Needs to repeat 3hr GTT with next visit. MICHAEL Bland * Amalia Vivar LPN - 07/06/2023 9:19 AM EST 26w0d Ethan LE swelling documented in this encounter Plan of Treatment Upcoming Encounters Date Type Department Care Team (Late st Contact Info) Description 07/20/2023 9:00 AM EDT Office Visit Gynecology/Obstetrics Wendy Jones [address] [place] [address] Gisel Willett PA-C [address] [place] [address] Scheduled Orders Name Type Priority Associated Diagnoses Orde r Schedule GESTATIONAL GLUCOSE TOLERANCE, 3 HOUR Lab Routine Normal in second trimester Expected: 07/20/2023 (Approximate), Expires: 07/05/2024 CBC WITH WBC DIFFERENTIAL AND ANEMIA REFLEX WORKUP Lab Routine Normal in second trimester Expected: 07/06/2023, Expires: 07/05/2024 SYPHILIS ANTIBODY SCREEN WITH REFLEX TO RPR Lab Routine Normal in second trimester Expected: 07/06/2023, Expires: 07/05/2024 Health Maintenance Due Date Last Done Comments Pneumococcal Vaccine: Pediatrics (0 to 5 Years) and At-Risk Patients (6 to 64 Years) (1 of 2 - PCV) 12/27/1999 Depression Screening 2005 DTaP,Tdap,and Td Vaccines (7 - Tdap) 01/30/2015 01/30/2005, 12/13/1998, 08/18/1995, Additional history exists COVID-19 Vaccine (1 - 2022-24 season) 2023 [...] antepartum documented in this encounter Care Teams Wall Worker Relationship Specialty Start Date End Date Wanda Rodriguez MD [address] [place] [address] [place] [phone] PCP - General Family Medicine 10/21/22 documented as of this encounter
[2023-10-16] MEDS ORDERED: Nursing to Pharmacy Communication SCH ×2 (02:15→22:00)
[2023-10-16] MEDS: LIDOCAINE 2%/EPINEPHRINE 1:200,000 20 ML PF ONE (02:59)
--- NOTE | 2023-10-16 03:10 | Obstetrical Progress Note ---
Date of Service October 16, 2023 Assessment & Plan Admission and Anticipated Discharge Date Admission Date: October 15, 2023 Subjective Patient had been uncomfortable, despite her epidural in place. She could not get any sleep. Dr Baez was here to did her 2nd epidural juts now She is getting better now VE; 5/ 80%/ -2, bulging bag, AROM'ed clear fluid FHR categ I, mild early decels with some of the contractions, good variability and accels present in between [place]: ctxs q 2-3 min. Oxytocin is at 3 miu/min Continue to monitor closely Results & Data Vital Signs (Past 12 Hours) Vital Signs Temp Pulse Resp BP Pulse Ox 10/16/23 03:04 121 H 136/64 10/16/23 03:02 130 H 100 10/16/23 02:58 101 H 135/64 10/16/23 02:57 107 H 98 10/16/23 02:52 122 H 98 10/16/23 02:50 134 H 145/94 H 10/16/23 02:47 133 H 98 10/16/23 02:42 124 H 99 10/16/23 02:37 132 H 98 10/16/23 02:32 110 H 98 10/16/23 02:27 120 H 98 10/16/23 02:22 122 H 100 10/16/23 02:20 112 H 115/64 10/16/23 02:17 93 H 115/58 L 99 10/16/23 02:14 96 H 115/59 L 10/16/23 02:12 101 H 99 10/16/23 02:11 95 H 120/58 L 10/16/23 02:10 101 H 94 10/16/23 02:07 89 116/59 L 99 10/16/23 02:02 92 H 98 10/16/23 01:57 114 H 97 10/16/23 01:54 88 115/60 10/16/23 01:53 100 H 93 10/16/23 01:52 91 H 98 10/16/23 01:47 83 100 10/16/23 01:42 97 H 99 10/16/23 01:40 95 H 117/77 10/16/23 01:37 106 H 100 10/16/23 01:32 82 98 10/16/23 01:31 98 H 93 10/16/23 01:27 75 98 10/16/23 01:24 81 100/50 L 10/16/23 01:22 88 99 10/16/23 01:17 79 98 10/16/23 01:12 101 H 98 10/16/23 01:09 78 101/52 L 10/16/23 01:07 100 H 100 10/16/23 01:02 94 H 97 10/16/23 01:00 18 10/16/23 01:00 36.4 C L 18 10/16/23 00:57 81 99 10/16/23 00:52 94 H 100 10/16/23 00:47 94 H 100 10/16/23 00:42 86 98 10/16/23 00:39 96 H 103/55 L 10/16/23 00:37 97 H 99 10/16/23 00:32 81 98 10/16/23 00:27 87 99 10/16/23 00:25 84 105/58 L 10/16/23 00:22 85 99 10/16/23 00:17 81 98 10/16/23 00:12 96 H 99 10/16/23 00:11 98 H 132/79 10/16/23 00:07 100 H 99 10/16/23 00:02 97 H 98 10/15/23 23:58 102 H 93 10/15/23 23:57 91 H 99 10/15/23 23:55 83 109/61 10/15/23 23:52 100 H 100 10/15/23 23:47 90 100 10/15/23 23:42 98 H 99 10/15/23 23:39 85 103/57 L 10/15/23 23:37 92 H 99 10/15/23 23:32 84 98 10/15/23 23:27 92 H 99 10/15/23 23:24 91 H 111/60 10/15/23 23:22 87 99 10/15/23 23:21 93 H 116/56 L 10/15/23 23:18 99 H 140/89 10/15/23 23:17 102 H 99 10/15/23 23:16 97 H 132/82 10/15/23 23:14 97 H 132/84 10/15/23 23:12 100 H 131/85 99 10/15/23 23:08 98 H 129/79 10/15/23 23:07 99 H 99 10/15/23 23:02 107 H 99 10/15/23 23:00 18 10/15/23 23:00 36.5 C 18 10/15/23 22:58 105 H 90 10/15/23 22:57 113 H 99 10/15/23 22:52 89 100 10/15/23 22:51 99 H 91 10/15/23 22:47 95 H 99 10/15/23 22:43 90 123/73 10/15/23 22:42 94 H 99 10/15/23 22:38 90 131/78 10/15/23 22:37 98 H 100 10/15/23 19:15 36.5 C 10/15/23 19:13 98 H 123/77 10/15/23 17:41 96 H 134/64 10/15/23 17:37 16 10/15/23 17:37 36.7 C 16 10/15/23 15:55 96 H 128/80
[2023-10-16] MEDS: BUPIVACAINE 0.25% PF 30 ML VIAL ONE (03:30)
[2023-10-16] MEDS: fentaNYL citrate PF 100 MCG/2 ML VIAL ONE (03:30)
[2023-10-16] MEDS: LIDOCAINE 1% LOCAL 20 ML VIAL INFIL PRN (06:15)
[2023-10-16] MEDS ORDERED: oxyCODONE/ACETAMINOPHEN 5mg/325mg TAB PO PRN (06:16)
[2023-10-16] MEDS ORDERED: bisacodyL 10 MG SUPP PR PRN (06:16)
[2023-10-16] MEDS ORDERED: HYDROCORTISONE ACETATE 25 MG SUPP PR PRN (06:16)
[2023-10-16] MEDS ORDERED: OXYTOCIN 30 UNITS/NSS 30 UNITS/500 ML BAG IV PRN (06:16)
--- NOTE | 2023-10-16 06:24 | Delivery Summary ---
Vaginal Delivery Summary Date of Service October 16, 2023 Vaginal Delivery Summary Patient was found to be fully dilated, felt pressure and desired to push. She pushed with contraction and the head was slowly with impending shoulder dystocia. The head was delivered then turtle sign was noted. Unable to deliver anterior shoulder with minimal traction. The nursing was aware. Her legs were hyperflexed with Bill Reyez's maneuverer and supra pubic pressure was applied with nursing team. I reached the posterior / left shoulder and delivered the arm then the shoulders came out with minimal traction within less than a minute of delivery of the head. . The baby was handed off to the mother. The cord was clampedx2 and cut. The vagina and perineum were checked and found to have 2nd degree perineal laceration from right mediolateral episio. Rectal exam was done and noted good sphincter tone. The gloves were changes. The placenta was delivered spontaneously as intact and complete. The uterus was explored and found to be empty. The vaginal mucosa was repaired with 2/0 vicryl and perineal muscles on continuos fashion and the skin on subcuticular fashion. QBL was 307 ml. The fundus was firm The baby was a viable male infant, Apgars 7/9, the weight is pending The mother and the baby tolerated the procedure well. No complications happened and I was present during whole procedure.
--- NOTE | 2023-10-16 07:19 | Anesthesia Procedure Note ---
Date of Service October 16, 2023 Anesthesia Post Epidural Note Vital Signs Vital Signs: Temp Pulse Resp BP Pulse Ox 36.9 C 117 H 18 113/62 88 L 10/16/23 05:00 10/16/23 07:14 10/16/23 06:45 10/16/23 07:14 10/16/23 05:44 Pain Intensity Abdomen: Pain Intensity: 4 Buttock: Pain Intensity: 5 Notes Mental Status: alert / awake / arousable and participated in evaluation Nausea / Vomiting: adequately controlled Pain: adequately controlled Airway Patency, RR, SpO2: stable & adequate BP & HR: stable & adequate Hydration State: stable & adequate Neuraxial Anesthesia: was administered and sensory block is resolving Anesthetic Complications: no major complications apparent Epidural: Removed without complications and With tip intact
[2023-10-16] MEDS: DOCUSATE SODIUM 100 MG CAP PO SCH (07:21)
[2023-10-16] MEDS: IBUPROFEN 600 MG TAB PO PRN (07:21)
[2023-10-16] MEDS: MEASLES, MUMPS & RUBELLA VIRUS VACCINE (MMR) 0.5ML VIAL SQ ONE (07:22)
[2023-10-16] MEDS: BENZOCAINE 20% SPRY 85 APPLN/85 GM CAN EXT PRN (07:22)
[2023-10-16] MEDS: PRENATAL VITAMIN 1 TAB PO SCH (07:22)
[2023-10-16] MEDS: DIPHTHER/TETAN/PERTUS Vaccine (Tdap, Adol/Adult) 0.5mL IM ONE (07:22)
[2023-10-16 09:14] LABS: Hematocrit (blood only) 35.9 % (37.0-47.0); Hemoglobin 12.3 g/dl (12.0-16.0); Mean Corpuscular Hemoglobin 30.8 pg (25.0-34.0); Mean Corpuscular Hgb Conc 34.3 g/dL (32.0-36.0); Mean Platelet Volume 12.9 fL (9.4-12.4); Platelet Count 196 K/uL (130-400); RDW Coefficient of Variation 13.4 % (11.5-14.5); Red Blood Count 3.99 M/uL (4.20-5.40); White Blood Count 24.59 K/ul (4.8-10.8)
[2023-10-16] MEDS: FERROUS SULFATE 325 MG TAB PO SCH (14:38)
[2023-10-16] MEDS: ACETAMINOPHEN 325 MG TAB PO PRN (16:12)
[2023-10-17 07:29] LABS: Hematocrit (blood only) 32.6 % (37.0-47.0); Mean Corpuscular Hgb Conc 33.7 g/dL (32.0-36.0); Mean Corpuscular Volume 88.8 fL (80.0-100.0); Mean Platelet Volume 12.8 fL (9.4-12.4); Platelet Count 161 K/uL (130-400); RDW Coefficient of Variation 13.8 % (11.5-14.5); RDW Standard Deviation 44.9 fL (36.4-46.3); Red Blood Count 3.67 M/uL (4.20-5.40); White Blood Count 13.05 K/ul (4.8-10.8)
--- NOTE | 2023-10-17 10:18 | Obstetrical Progress Note ---
Date of Service October 17, 2023 Assessment & Plan (1) Normal course: pt doing well no complaints d/c home with instructions Subjective Ambulation: ambulating normally Voiding: no voiding problems Passing Gas:: Yes Diet Tolerance:: regular diet Lochia:: Small Feeding Type:: breast feeding Review of Systems All systems reviewed & are unremarkable except as noted in HPI & below Physical Exam Constitutional WD/WN, vitals as above well developed and well nourished Eyes PERRL, conjunctivae normal, anicteric sclerae Neck trachea midline, no thyromegaly Respiratory normal respiratory effort, lungs clear to auscultation Auscultation: no crackles, no rales and no wheezes Cardiovascular RRR, no murmur, no edema Gastrointestinal (Abdomen) normal bowel sounds, soft, nontender, no hepatosplenomegaly Uterus is below umbilicus Musculoskeletal no cyanosis or clubbing, extremities motor strength 5/5 Skin no rashes, warm and dry Neurologic patellar DTR's 2+ bilat, sensation intact Psychiatric A+Ox3, euthymic affect Genitourinary normal external appearance Results & Data Vital Signs (Past 12 Hours) Vital Signs Temp Pulse Resp BP Pulse Ox O2 Del Method 10/17/23 08:07 36.6 C 89 17 112/78 99 Room Air 10/17/23 03:17 36.6 C 76 18 111/75 98 Room Air 10/16/23 22:39 36.8 C 99 H 18 107/74 94 Room Air
[2023-10-17] MEDS ORDERED: bisacodyL 5 MG TABEC PO SCH (20:00)
== END 2023-10-17 14:00 | disposition home health service (06) | DRG 807 ==
LOC: 4S1 07:41 → 4E2 10-16 09:00